=== PATIENT | male | born 1960 | race Caucasian/White ===

== ENCOUNTER 2017-05-11 09:22 | Inpatient (IN) | payer MEDICARE ==
--- NOTE | 2017-05-01 15:50 | HP ---
AMENDED REPORT NOW INCLUDES COSIGNER DESIGNATION - ESIGNED BEFORE ADJUSTMENT HISTORY AND PHYSICAL: DATE OF ADMISSION/SURGERY: 05/11/17 SURGEON: Isabelle Smith MD * (DICTATED BY KAVYA ACOSTA) PROCEDURE: Right total knee arthroplasty. CHIEF COMPLAINT: Right knee pain. HISTORY OF PRESENT ILLNESS: Mr. Simon is a 56-year-old gentleman with continued complaints of right knee pain. He has failed conservative management and has elected to proceed with a right total knee arthroplasty, which is scheduled for 05/11/17, with Dr. Smith. PAST MEDICAL HISTORY: 1. Diabetes. 2. COPD. 3. Hyperlipidemia. 4. Depression. 5. History of alcohol abuse. 6. Venous insufficiency. 7. GERD. 8. Hypogonadism. 9. Sleep apnea. 10. Hypothyroidism. PAST SURGICAL HISTORY: 1. Lumbar fusion. 2. Bilateral total hip replacements. 3. Bilateral total shoulder replacements. 4. Right knee arthroscopy x3. 5. Left knee arthroscopy x2. CURRENT MEDICATIONS: 1. Oxycodone 10 mg every 3 hours as needed. 2. Fentanyl patch. 3. Potassium chloride. 4. Lyrica. 5. Fish oil. 6. Cymbalta 60 mg daily. 7. Furosemide 40 mg daily. 8. Mirtazapine 45 mg daily. 9. Metformin 500 mg 2 tabs in the morning, 1 in the evening. 10. Levothyroxine 50 mcg daily. 11. Quetiapine fumarate. 12. Buspirone. 13. Alpha-lipoic acid. 14. Vitamin B12. 15. Celebrex. 16. Albuterol sulfate. 17. Melatonin. 18. Seroquel 50 mg twice daily. 19. Zolpidem tartrate. 20. Baclofen. 21. Levemir. ALLERGIES: To NICOTINE PATCH and TAPE. 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 He smokes half a pack a day. He denies use of drugs or alcohol. REVIEW OF SYSTEMS: A complete 14-point review of systems is reviewed with the patient, is positive for shortness of breath, COPD, diabetes, and thyroid disease. PHYSICAL EXAMINATION GENERAL: He is well developed, well nourished, in no acute distress. VITAL SIGNS: He stands 5 feet 11 inches tall, weighs 300 pounds. His blood pressure is 150/87, heart rate is 80. HEENT: Normocephalic, atraumatic. NECK: Supple. No palpable lymph nodes. PULMONARY: Lungs are clear to auscultation bilaterally. CARDIO: Regular rate and rhythm. Strong S1, S2. ABDOMEN: Soft, nontender, nondistended. NEUROLOGIC: He is alert and oriented x3. Pleasant mood and appropriate affect. MUSCULOSKELETAL: Right lower extremity, the skin is intact. There are no open wounds or abrasions. He has some tenderness over the medial and lateral joint line. He has 5 to 125 degrees of range of motion, 2+ dorsalis pedis pulses, intact sensation. All of his lower extremity muscle group strengths are intact at 5/5. ASSESSMENT AND PLAN: Mr. Simon is a 56-year-old gentleman with complaints of right knee pain secondary to advanced osteoarthritis. He has failed conservative management and elected to proceed with a right total knee arthroplasty, which is scheduled for 05/11/[address] Smith discussed the risks and benefits of the surgery and all of his questions were answered. Coumadin and Colace were sent to his pharmacy for postoperative DVT prophylaxis. He is currently a patient of Dr. Jay at the pain clinic and has a prescription for oxycodone and a fentanyl patch. Postoperative pain control will be determined at the time of discharge. KAVYA ACOSTA [id number]/[facility] #: [id number] MTDLeeanna
[~2017-05-11 09:22] MED LIST: Buffered Lidocaine 0.9% SYRIN* 5 ML/SYR SYRINGE INTRADERM ONE; Famotidine IV* 10 MG/ML 2 ML (20 mg) IV ONE
[2017-05-11] MEDS ORDERED: Gabapentin CAP(*) 300 MG PO ONE (09:45)
[2017-05-11] MEDS ORDERED: fentaNYL* 50 MCG/ML 2 ML VIAL (100 MCG VIAL) ONE ×3 (09:47→13:43)
[2017-05-11] MEDS ORDERED: Midazolam* 1 MG/ML 5 ML VIAL (5 MG) ONE (09:47)
[2017-05-11] MEDS ORDERED: Famotidine IV* 10 MG/ML 2 ML (20 mg) ONE (10:01)
[2017-05-11] MEDS ORDERED: Gabapentin CAP(*) 300 MG ONE (10:01)
[2017-05-11] MEDS ORDERED: ceFAZolin 2 GM PREMIX (*) 50 ML IVPB ONE (10:21)
[2017-05-11] MEDS ORDERED: ceFAZolin 1 GM in Dextrose (*) 1 GM/50 ML BAG IVPB ONE (10:29)
[2017-05-11] MEDS ORDERED: Lidocaine 2% PF * 5 ML VIAL ONE ×2 (11:35→13:56)
[2017-05-11] MEDS ORDERED: ROPIVACAINE 5 MG/ML 30 ML BTL (0.5%) ONE (11:35)
[2017-05-11] MEDS ORDERED: KETAMINE HCL* 50 MG/ML 10 ML VIAL ONE (12:38)
[2017-05-11] MEDS ORDERED: hydrALAZINE IV* 20 MG/ML VIAL ONE (13:56)
[2017-05-11] MEDS ORDERED: Dexamethasone IV* 4 MG/ML 1 ML (4 MG) ONE (13:56)
[2017-05-11] MEDS ORDERED: Ketorolac INJ* 30 MG/ML 1 ML VIAL ONE ×2 (13:56→16:29)
[2017-05-11] MEDS ORDERED: Succinylcholine* 20 MG/ML 10 ML VIAL ONE (13:56)
[2017-05-11] MEDS ORDERED: Propofol* 10 MG/ML 20 ML BTL IV PUSH ONE (13:56)
[2017-05-11] MEDS ORDERED: Ondansetron INJ* 2 MG/ML VIAL ONE (13:56)
[2017-05-11] MEDS ORDERED: HYDROmorphone INJ* 1 MG/ML CARPUJECT SYRINGE ONE ×2 (14:43→15:24)
[2017-05-11] MEDS ORDERED: oxyCODONE/Acetamin 5/325 MG* TAB PO PRN ×2 (14:51)
[2017-05-11] MEDS ORDERED: diPHENhydraMINE IV* 50 MG/ML 1 ml VIAL (BENADRYL) IV PRN (14:51)
[2017-05-11] MEDS ORDERED: Acetaminophen TAB* 325 MG PO PRN (14:51)
[2017-05-11] MEDS ORDERED: Polyethylene Glycol 3350* 17 GM PACKET PO PRN (14:51)
[2017-05-11] MEDS ORDERED: Ondansetron INJ* 2 MG/ML VIAL IV PRN (14:51)
[2017-05-11] MEDS ORDERED: traZODone TAB* 50 MG TAB PO PRN (14:51)
[2017-05-11] MEDS ORDERED: Albuterol HFA INHALER* 8 gm MDI INH PRN (14:59)
[2017-05-11] MEDS ORDERED: Zolpidem TAB* 10 MG PO PRN (14:59)
[2017-05-11] MEDS ORDERED: NON FORMULARY MED* (Melatonin [Melatonin] 5 MG) PO PRN (14:59)
[2017-05-11] MEDS ORDERED: DiMENhydriNATE IV* 50 MG/ML VIAL IV PUSH PRN (15:02)
[2017-05-11] MEDS ORDERED: oxyCODONE TAB* 5 MG TAB PO PRN (15:08)
[2017-05-11] MEDS ORDERED: oxyCODONE/Acetamin 5/325 MG* TAB ONE (15:23)
[2017-05-11] MEDS ORDERED: Gabapentin CAP(*) 100 MG ONE (15:30)
[2017-05-11] MEDS: oxyCODONE/Acetamin 5/325 MG* TAB PO PRN ×2 (15:33→15:34)
[2017-05-11] MEDS: HYDROmorphone INJ* 1 MG/ML CARPUJECT SYRINGE IV PRN ×2 (15:33→16:04)
[2017-05-11] MEDS ORDERED: Dextrose 50% Syringe 50 ML* 25 GM/50 ML SYRINGE IV PUSH PRN (15:47)
[2017-05-11] MEDS ORDERED: Albuterol 2.5 MG/3 ML NEB.SOL* (0.083%) INH PRN (15:52)
[2017-05-11] MEDS: Ketorolac INJ* 30 MG/ML 1 ML VIAL IV PUSH SCH ×2 (16:30→22:06)
--- NOTE | 2017-05-11 16:31 | RAD ---
INDICATION: Status post right knee total arthroplasty COMPARISON: Preoperative knee radiograph March 29, 2017 TECHNIQUE: 2 view radiograph of the right knee. FINDINGS: The patient is status post right knee prosthesis in anatomic alignment. Postsurgical changes include a drain. IMPRESSION: Anatomic alignment of right knee prosthesis.
[2017-05-11] MEDS ORDERED: Warfarin TAB(*) 6 MG PO ONE (18:00)
[2017-05-11] MEDS: fentaNYL PATCHs 100 MCG/HR TRANSDERM SCH (18:12)
[2017-05-11] MEDS: oxyCODONE TAB* 5 MG TAB PO SCH ×2 (18:16→22:05)
[2017-05-11] MEDS: HYDROmorphone INJ* 2 MG/ML CARPUJECT SYRINGE IV SLOW PU PRN (18:17)
[2017-05-11] MEDS: Insulin LISPRO* 1 UNITS UNIT SUBCUT SCH (18:17)
[2017-05-11] MEDS: Mirtazapine TAB* 15 MG PO SCH (18:27)
[2017-05-11] MEDS: fentaNYL Patch Check Q Shift 1 NOTE SCH (18:44)
[2017-05-11] MEDS ORDERED: OXYCODONE HCL 30 MG PO SCH (21:00)
[2017-05-11] MEDS ORDERED: metFORMIN* 500 MG TAB PO SCH (21:00)
[2017-05-11] MEDS ORDERED: celeCOXIB CAP* 200 MG PO SCH (21:00)
[2017-05-11] MEDS: ceFAZolin 1 GM VIAL(*) 1 GM in NS 0.9% 50 ML* 50 ML IVPB SCH (21:07)
[2017-05-11] MEDS: busPIRone TAB* 10 MG PO SCH (21:07)
[2017-05-11] MEDS: Baclofen TAB* 10 MG PO SCH (21:08)
[2017-05-11] MEDS: Docusate CAP* 100 MG PO SCH (21:08)
[2017-05-11] MEDS: Pregabalin CAP(*) 50 MG PO SCH (21:09)
[2017-05-11] MEDS: DULoxetine DR CAP* 60 MG CAP.DR PO SCH (21:10)
[2017-05-11] MEDS: QUEtiapine TAB* 25 MG PO SCH (21:10)
[2017-05-11] MEDS: OMEGA-3 FATTY ACIDS (NF) 1,000 MG CAP PO SCH (21:11)
[2017-05-11] MEDS: ALPHA LIPOIC ACID PO SCH (21:11)
--- NOTE | 2017-05-11 22:16 | CONS ---
CC: Dr. Brown; Dr. Smith * CONSULTATION REPORT: DATE OF CONSULT: 05/11/17 PRIMARY CARE PROVIDER: Dr. Brown. ATTENDING PHYSICIAN WHILE IN THE HOSPITAL: Sammy Layne MD (report dictated by Ton Gutierrez NP) REASON FOR MEDICAL CONSULTATION: Evaluation and medical management of comorbid medical conditions. HISTORY OF PRESENT ILLNESS: I refer you to Dr. Smith's H and P dictated prior to admission for further details. In short, Mr. Simon is a 56-year-old male patient with multiple medical problems. He is diabetic. He has history of COPD , hyperlipidemia, depression, remote history of EtOH use and abuse, history of GERD, TALON, and does not wear a CPAP, and a history of hypothyroidism. He has been having a significant amount of right knee pain for some time. He was failing conservative therapy of significant arthritis of his knees. He has previously had knee arthroscopies to his right knee. Because of the continued pain and failed conservative therapy, it was felt that he would benefit from a right total knee replacement, which he underwent today. He was evaluated in the PACU. He denies having any chest pain or any shortness of breath. He states his pain is about an 8/10, it is coming down, it is getting better with the pain medications. He denies having any nausea. Denies having any vomiting or any abdominal discomfort. He states he does not feel lightheaded or dizzy. He states that he has sensation to both legs and that he is feeling well besides the knee pain. Because of his medical complexity, we were asked to evaluate in consult. PAST MEDICAL HISTORY: Significant for: 1. Diabetes. 2. COPD. 3. Hyperlipidemia. 4. Depression. 5. EtOH abuse in the past. 6. GERD. 7. TALON. 8. Hypothyroidism. PAST SURGICAL HISTORY: 1. He has had a lumbar fusion. 2. He has had bilateral total hip arthroplasty. 3. He has had bilateral shoulder replacements. 4. He has had right knee arthroscopy x3. 5. He has had left knee arthroscopy x2. 6. He has had a right total knee replacement. HOME MEDICATIONS: 1. Fentanyl patch 100 mcg every 72 hours. 2. BuSpar 30 mg p.o. b.i.d. 3. Ambien 10 mg at bedtime as needed. 4. Seroquel 50 mg p.o. b.i.d. 5. Lyrica 150 mg p.o. t.i.d. 6. Potassium 10 mEq p.o. daily. 7. Oxycodone ER 30 mg p.o. take as directed. 8. Clermont-3 fatty acids 1000 mg p.o. b.i.d. 9. Remeron 45 mg p.o. daily. 10. Metformin 2 tablets p.o. b.i.d. 11. Melatonin 5 mg p.o. at bedtime as needed. 12. Synthroid 50 mcg daily. 13. Insulin detemir 60 units subcu q.a.m. 14. Lasix 40 mg daily. 15. Cymbalta 60 mg p.o. b.i.d. 16. B12 two tablets p.o. on Monday. 17. Celebrex 200 mg p.o. b.i.d. 18. Baclofen 10 mg p.o. b.i.d. 19. Alpha lipoic acid 200 mg p.o. b.i.d. 20. ProAir 2 puffs inhaled every 6 hours as needed. ALLERGIES TO MEDICATIONS: Include NICOTINE and ADHESIVE TAPE. FAMILY HISTORY: Mother had a history of diabetes. Father had a history of emphysema. SOCIAL HISTORY: He is a former alcoholic. He does have a history of tobacco abuse. He smokes about a half a pack a day. He has been smoking since the teens. His surrogate decision maker is his . REVIEW OF SYSTEMS: There is no documented fever. He denied having any significant weight change. There was no double vision. He denies having any ear discharge. He denies having any rhinorrhea. There is no sore throat, no thyroid enlargement. Denies having any chest pain. There is no orthopnea. No nocturnal dyspnea. Denies having any abdominal discomfort. Denies any nausea or vomiting. No dysuria. No frequency. No seizure. No loss of consciousness. No pruritus. No skin ulcerations. Review of 14 systems completed, all others negative. PHYSICAL EXAMINATION: Vital Signs: Blood pressure 153/81 with a pulse of 88, respirations are 16, O2 sat 93%, and temperature 97.9. General: At this time, Mr. Simon is a 56-year-old male patient. He is sitting in the PACU bed. He does not appear to be in any acute distress. HEENT: Head atraumatic. Eyes: EOMs are intact. Sclerae anicteric. Neck: Supple. Throat: Oral mucosa appears to be moist. No oropharyngeal erythema. Heart sounds S1, S2. Regular rate and rhythm. No murmurs, rubs, or gallops. Lungs: Clear to auscultation. No wheezes, rales, or rhonchi. Abdomen: Soft, flat, nontender. Bowel sounds are hypoactive. Extremities: Pulses are 2+ throughout. He is moving his upper extremity with 5/5 strength. Distal CSM checks were intact in the right lower extremity. Neurologic: He is drowsy, but he awakens. He is alert. He is oriented x3. His tongue is midline. His internal corrosion specialist are equal. He had no gross focal deficits. Skin: Intact with the exception he has an incision to the right knee, which is covered with a Wojciech dressing and his Hemovac intact. LABORATORY DATA: Preop revealed WBC of 8.0, RBC of 4.41, hemoglobin of 15.2, hematocrit of 43, platelet count of 142. INR 0.90. Sodium was 124, potassium 3.9, chloride 99, bicarb 28, BUN 17, creatinine 0.86, glucose of 312, AST 50, ALT 43, albumin 4.2. Urine preop negative. He did have a chest x-ray preop, which revealed no active cardiopulmonary disease. He had an EKG obtained preop , which showed a normal sinus rhythm rate of 65. He had an intraventricular conduction delay. No signs of ST elevation or T wave inversions. Old medical records reviewed. ASSESSMENT AND PLAN: Mr. Simon is a 56-year-old male patient coming into the orthopedic services today for an elective right total knee replacement. The hospitalist service was asked to evaluate in consult. Recommendations at this point are: 1. Status post right total knee. I will defer the management of this to Dr. Smith and her team. 2. Diabetes. We will continue with detemir and also put him on a sliding scale. 3. History of chronic obstructive pulmonary disease. I have ordered p.r.n. albuterol. We will continue with pulmonary toileting. I did order incentive spirometry. 4. Hyperlipidemia. Continue his meds as prescribed. 5. Depression. Continue meds as prescribed, it is stable. 6. History of EtOH abuse. Not an active issue. We will monitor. 7. Gastroesophageal reflux disease. Current his current medical management. 8. History of obstructive sleep apnea. Did order oximetry overnight. 9. Hypothyroidism. Continue with Synthroid. 10. Chronic pain. Orthopedics did continue his fentanyl. We will monitor him closely for any increased somnolence. We may need to cut back on his chronic pain meds in the setting of him having recent anesthesia, but we will follow. 11. Hypertension. Again, he takes only the Lasix and he states he takes this for his blood pressure, but in the setting of acute illness and postop like this , I am going to hold on the Lasix. We can restart this as needed. We will follow the blood pressure closely. 12. DVT prophylaxis. We will defer to the primary team. 13. Code status. He is a full code. 14. Fluid, electrolytes, and nutrition. I would recommend a heart healthy diet. TIME SPENT: Time spent on the consult was 60 minutes, greater than half that time was spent [id number] with the patient obtaining my history and physical, the other half time was spent going over the plan of care with the patient and implementing the plan of care. I discussed the plan of care with my attending, Dr. Layne, he is in agreement. TON GUTIERREZ NP [id number]/[facility] #: [id number] MTDLeeanna
[2017-05-12] MEDS: oxyCODONE TAB* 5 MG TAB PO SCH ×6 (02:29→22:00)
[2017-05-12] MEDS: ceFAZolin 1 GM VIAL(*) 1 GM in NS 0.9% 50 ML* 50 ML IVPB SCH ×2 (04:09→12:00)
[2017-05-12] MEDS: Ketorolac INJ* 30 MG/ML 1 ML VIAL IV PUSH SCH ×4 (04:09→22:01)
[2017-05-12] MEDS: Levothyroxine TAB* 50 MCG TAB PO SCH (06:33)
[2017-05-12] MEDS: fentaNYL Patch Check Q Shift 1 NOTE SCH ×2 (07:20→18:56)
[2017-05-12 07:55] LABS: Hematocrit 37 % (42-52); Hemoglobin 12.6 g/dl (14.0-18.0)
[2017-05-12 08:15] LABS: BUN/Creatinine Ratio 18.3 (8-20); Calcium 8.4 mg/dL (8.6-10.3); EGFR African American 125.9 (>60); EGFR Non-African American 97.9 (>60)
--- NOTE | 2017-05-12 08:27 | PN ---
Progress Note - Progress Note Date of Service: 05/12/17 SOAP: Subjective: 56 y/o male s/p R TKA 05/[address] Smith. Patient sitting up, no questions/ concerns about surgery. Pain well controlled. VSS, afebrile overnight. Objective: General- AO NAD sitting in chair MSK - R knee surgical dressing intact, drain removed by DR. Smith without difficulty, tip intact, neg homans b/l, PT 2+ b/l, sensation intact grossly to light touch b/l LEs, + DF/PF b/l. Vital Signs Temp 98.1 F 05/12/17 07:30 Pulse 69 05/12/17 07:30 Resp 16 05/12/17 07:30 BP 102/67 05/12/17 07:30 Pulse Ox 95 05/12/17 07:30 Intake & Output 05/11/17 05/12/17 05/12/17 18:59 06:59 18:59 Intake Total 3800 1119 Output Total 400 3100 Balance 3400 -1981 Weight 300 lb Intake: IV Fluids 3300 880 LR 880 lr 3300 IVPB 119 ABX - CEFAZOLIN 119 Oral 500 120 Output: ZANE #1 0 Cifuentes 200 3100 Estimated Blood Loss 200 Assessment: Stable 56 y/o male s/p R TKA 05/[address] Smith Plan: - DVT prophylaxis- coumadin, lovenox. Coumadin dosing- 8mg tonight - COntinue PT/ OT - Possible D/C home tomorrow - Continue pain regimen Active Medications Generic Name Dose Route Start Last Admin Trade Name Freq PRN Reason Stop Dose Admin Acetaminophen 650 mg 05/11/17 14:51 Tylenol Tab* PO Q4H PRN PAIN OR TEMPERATURE Albuterol 2 puff 05/11/17 14:59 Ventolin Hfa Inhaler* INH Q6H PRN SOB/WHEEZING Albuterol 2.5 mg 05/11/17 15:52 Ventolin 2.5 Mg/3 Ml Neb.Darlene* INH Q2H PRN SOB/WHEEZING Baclofen 10 mg 05/11/17 21:00 05/11/17 21:08 Lioresal Tab* PO 10 mg BID NATAN Administration Buspirone HCl 30 mg 05/11/17 21:00 05/11/17 21:07 Buspar Tab* PO 30 mg BID NATAN Administration Cyanocobalamin 1,000 mcg 05/17/17 09:00 Vitamin B12 Tab* PO WE NATAN Dextrose 12.5 gm 05/11/17 15:47 D50w Syringe 50 Ml* IV PUSH .FOR FS < 60 - SS PRN FS < 60 Diphenhydramine HCl 25 mg 05/11/17 14:51 Benadryl Iv* IV Q6H PRN itching Docusate Sodium 100 mg 05/11/17 21:00 05/11/17 21:08 Colace Cap* PO 100 mg BID NATAN Administration Duloxetine HCl 60 mg 05/11/17 21:00 05/11/17 21:10 Cymbalta Cap* PO 60 mg BID NATAN Administration Enoxaparin Sodium 40 mg 05/12/17 09:00 Lovenox(*) SUBCUT Q24H NATAN Fentanyl 100 mcg 05/11/17 18:00 05/11/17 18:12 Duragesic Patch 100 Mcg/Hr * TRANSDERM 100 mcg Q72H NATAN Administration Fish Oil 1,000 mg 05/11/17 21:00 05/11/17 21:11 Fish Oil (Nf) PO Not Given BID [facility] Protocol Hydromorphone HCl 2 mg 05/11/17 15:08 05/11/17 18:17 Dilaudid Inj* IV SLOW PU 2 mg Q4H PRN Administration PAIN Cefazolin Sodium 1 gm/ Sodium 50 mls @ 200 mls/hr 05/11/17 20:00 05/12/17 04: 09 Chloride IVPB 05/12/17 12:14 200 mls/hr Q8H NATAN Administration Lactated Ringer's 1,000 mls @ 100 mls/hr 05/11/17 15:00 Lactated Ringers 1000 Ml Bag* IV PER RATE [facility] Insulin Glargine 60 units 05/12/17 09:00 Lantus(*) SUBCUT QAM NATAN Insulin Human Lispro 0 units 05/11/17 16:30 05/11/17 18:17 Humalog* SUBCUT 6 units AC [facility] Administration Protocol Ketorolac Tromethamine 30 mg 05/11/17 16:00 05/12/17 04:09 Toradol Inj* IV PUSH 30 mg Q6H NATAN Administration Lactulose 30 ml 05/11/17 14:51 Lactulose* PO Q6H PRN constipation Levothyroxine Sodium 50 mcg 05/12/17 06:00 05/12/17 06:33 Synthroid Tab* PO 50 mcg 0600 NATAN Administration Magnesium Hydroxide 30 ml 05/11/17 14:51 Milk Of Magnesia Liq* PO Q6H PRN constipation Mirtazapine 45 mg 05/11/17 18:00 05/11/17 18:27 Remeron Tab* PO 45 mg QPM NATAN Administration Non-Formulary Medication 200 mg 05/11/17 21:00 05/11/17 21:11 Alpha-Lipoic Acid (Thioctic Ac [Alpha Lipoic Acid] PO Not Given BID NATAN Non-Formulary Medication 5 mg 05/11/17 14:59 Melatonin [Melatonin] PO BEDTIME PRN INSOMNIA Ondansetron HCl 4 mg 05/11/17 14:51 Zofran Inj* IV Q6H PRN nausea Oxycodone HCl 30 mg 05/11/17 18:00 05/12/17 06:57 Roxycodone Tab* PO 30 mg Q4HR NATAN Administration Pharmacy Profile Note 1 note 05/11/17 19:00 05/12/17 07:20 Fentanyl Patch Check Q Shift N/A 1 note 0700,1900 NATAN Administration Polyethylene Glycol/Electrolytes 17 gm 05/11/17 14:51 Miralax* PO DAILY PRN Constipation Potassium Chloride 10 meq 05/12/17 09:00 Klor Con Er Tab* PO QAM NATAN Pregabalin 150 mg 05/11/17 21:00 05/11/17 21:09 Lyrica Cap(*) PO 150 mg TID NATAN Administration Quetiapine Fumarate 50 mg 05/11/17 21:00 05/11/17 21:10 Seroquel Tab* PO 50 mg BID NATAN Administration Trazodone HCl 25 mg 05/11/17 14:51 Desyrel Tab* PO BEDTIME PRN insomnia Zolpidem Tartrate 10 mg 05/11/17 14:59 Ambien Tab* PO BEDTIME PRN SLEEP Laboratory Results - last 24 hr 05/11/17 05/11/17 05/11/17 09:33 15:06 17:45 Hgb Hct Sodium Potassium Chloride Carbon Dioxide Anion Gap BUN Creatinine Est GFR ( Amer) Est GFR (Non-Af Amer) BUN/Creatinine Ratio Glucose POC Glucose (mg/dL) 162 H 205 H 234 H Calcium 05/12/17 05/12/17 05/12/17 06:46 06:46 07:26 Hgb 12.6 L Hct 37 L Sodium 137 Potassium 4.0 Chloride 104 Carbon Dioxide 29 Anion Gap 4 BUN 15 Creatinine 0.82 Est GFR ( Amer) 125.9 Est GFR (Non-Af Amer) 97.9 BUN/Creatinine Ratio 18.3 Glucose 218 H POC Glucose (mg/dL) 228 H Calcium 8.4 L
[2017-05-12] MEDS ORDERED: Furosemide TAB* 40 MG PO SCH (09:00)
[2017-05-12] MEDS: busPIRone TAB* 10 MG PO SCH ×2 (09:55→21:58)
[2017-05-12] MEDS: Baclofen TAB* 10 MG PO SCH ×2 (09:55→21:57)
[2017-05-12] MEDS: QUEtiapine TAB* 25 MG PO SCH ×2 (09:55→22:00)
[2017-05-12] MEDS: DULoxetine DR CAP* 60 MG CAP.DR PO SCH ×2 (09:56→21:58)
[2017-05-12] MEDS: Pregabalin CAP(*) 50 MG PO SCH ×3 (09:56→21:59)
[2017-05-12] MEDS: Docusate CAP* 100 MG PO SCH ×2 (09:56→21:58)
[2017-05-12] MEDS: Potassium Chlor TAB* 10 MEQ TAB.ER PO SCH (09:56)
[2017-05-12] MEDS: OMEGA-3 FATTY ACIDS (NF) 1,000 MG CAP PO SCH ×2 (09:57→21:50)
[2017-05-12] MEDS: Insulin GLARGINE(*) 1 UNITS UNIT SUBCUT SCH (09:59)
[2017-05-12] MEDS: ALPHA LIPOIC ACID PO SCH ×2 (09:59→21:50)
[2017-05-12] MEDS: Insulin LISPRO* 1 UNITS UNIT SUBCUT SCH ×3 (10:00→17:25)
[2017-05-12] MEDS: Enoxaparin(*) 40 MG/0.4 ML SYR SUBCUT SCH (10:02)
[2017-05-12] MEDS: HYDROmorphone INJ* 2 MG/ML CARPUJECT SYRINGE IV SLOW PU PRN ×2 (12:42→20:07)
--- NOTE | 2017-05-12 14:40 | OP ---
OPERATIVE REPORT: DATE OF OPERATION: 05/11/17 DATE OF : 64 ATTENDING SURGEON: Isabelle Smith MD [employer]: KAVYA Manuel Ms. Jose Antonio did help throughout the procedure with preparation of the leg, wound retraction, manipulation of the knee, and wound closure. ANESTHESIOLOGIST: Dr. Washburn. ANESTHESIA: Spinal. PRE-OP DIAGNOSIS: Severe end-stage degenerative osteoarthritis of the right knee joint. POST-OP DIAGNOSIS: Severe end-stage degenerative osteoarthritis of the right knee joint. OPERATIVE PROCEDURE: Right total knee arthroplasty. TOURNIQUET TIME: 48 minutes. COMPLICATIONS: None. ESTIMATED BLOOD LOSS: 300 mL. SPECIMENS: Bone and cartilage from the right knee joint, sent to Pathology. HARDWARE USED: Cemented Vel[employer]hew total knee hardware. 2 packages of Simplex bone cement. For the femur, size 7 right Oxinium femoral component. For the tibia, size 6 right tibial baseplate. For the insert, an 11-mm posterior stabilized articular insert, size 5/6. For the patella, a 38, 3-peg all poly patella. BRIEF HISTORY/INDICATION: Mr. Simon is a 56-year-old gentleman with years of right knee pain. He started to develop valgus deformity as well. Radiographs and prior MRI indicated severe arthritis in the tricompartmental fashion. The patient failed conservative treatment with antiinflammatory pain medication, intraarticular injections, and physical therapy. Due to decreased quality of life and constant pain, he elected to undergo right total knee arthroplasty. Informed consent was obtained from the patient. He understood the risks of surgery included but were not limited to bleeding, infection, damage to nearby structures, continued pain, need for further surgery, intraoperative fracture, nerve palsy, hardware failure or loosening, knee stiffness, loss of motion, stroke, heart attack, blood clot, and . He wished to proceed. INTRAOPERATIVE FINDINGS: Intraoperatively, the patient was noted to have severe full thickness loss of cartilage in tricompartmental fashion. 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 DESCRIPTION OF PROCEDURE: Mr. Simon was identified in the preanesthesia unit. His right lower extremity was marked as the correct operative side. Informed consent was signed and placed in the chart. Right lower extremity was marked as the correct operative site. The patient was taken to the operating room. Anesthesia was administered without difficulty. Cifuentes catheter was placed. Tourniquet was placed on the right thigh. The right lower extremity was prepped and draped in the usual sterile fashion. Preop time-out was made to correctly identify the patient side and site. Appropriate preoperative antibiotics were given within 1 hour of incision. Tourniquet was inflated and total tourniquet time for this procedure was 48 minutes. A 14-cm midline incision was made with a #10 blade. This was carried down to the extensor mechanism. A new #10 blade used to make a standard medial parapatellar arthrotomy. Patella was subluxed laterally. Electrocautery was used to subperiosteally elevate soft tissue off the superomedial tibia to the mid sagittal plane. The knee was flexed up. The ACL, horn of the lateral meniscus was sharply released. A drill was used to enter the distal femur. Intramedullary distal femoral cutting guide was pinned on the distal femur. Oscillating saw was used to make the distal femoral cut. The lateral femoral condylar hypoplasia was noted and accounted for. Next, the external rotational guide was pinned on the distal femur. Distal femur was sized to a size 7. Size 7 multi-cutting jig was pinned on the distal femur. The oscillating saw was used to make the appropriate 4 chamfer cuts. Any bony fragments were carefully removed. The PCL was completely released. The tibia was subluxed anteriorly. Extramedullary tibial cutting guide was pinned on the proximal tibia. The oscillating saw was used to make the proximal tibial cut perpendicular to the mechanical axis of the tibia. The bone was carefully removed. The knee was brought out into full extension. The spacer block had good fit and extension. Medial and lateral ligaments were well balanced. Flexion and extension gaps were well balanced. The knee was flexed up. Lamina product manager was placed both medially and laterally. Any remaining meniscus was carefully removed with electrocautery. Any posterior osteophytes were removed with a curved osteotome. Tibial tray and drop candido was placed on the tibia. This was used to once again confirm a satisfactory tibial cut. This was confirmed. A size 7 right femoral component trial was impacted on to the distal femur. This had excellent fit. The box for the posterior stabilized implant was prepared using a reamer and box cut osteotome. Size 6 tibial tray trial with an 11 mm insert trial was placed and the knee was taken through range of motion. There was full extension and 130 degrees flexion with satisfactory patellofemoral tracking. The patella was everted. 9 mm of patellar bone and cartilage were carefully removed with an oscillating saw. The patella was sized to size 38. Three peg holes were drilled for the size 38 guide. Trial 38 patella was placed and the knee was taken through range of motion. There is good patellofemoral tracking. All trials were carefully removed. The tibia was subluxed anteriorly and sized to a size 6. The proximal tibia was prepared using a size 6 keel punch. All bony cut surfaces were copiously irrigated with sterile saline and dried. Final implants were cemented into place and starting with the tibia followed by the femur, and lastly the patella. An 11-mm insert trial was placed while the knee was brought out into extension while the cement was fully cured. The tourniquet was turned down at 48 minutes. The knee was copiously irrigated with sterile saline. Once the cement had fully cured, the insert trial was removed. Any excess cement was carefully removed from around the implant. Electrocautery was used to obtain meticulous hemostasis. Final insert chosen was an 11 mm posterior stabilized articular insert size 5/6. This was locked into position on the tibial tray. Stability of the insert was checked and rechecked and noted to be stable. The knee was copiously irrigated with sterile saline. Extensor mechanism was closed using a interrupted #1 Vicryl over a medium Hemovac drain. The rest of the incision was closed in a layered fashion using 0 and 2-0 Vicryls. The skin was closed using running 3-0 nylon suture. Xeroform, 4x4s, and Webril were used to cover the incision. Wojciech wrap and cold pack were placed over this. The patient's anesthesia was reversed without difficulty. He was taken to the PACU in stable condition. Intended weightbearing will be weightbearing as tolerated. Intended DVT prophylaxis will be Coumadin with a Lovenox bridge. [id number]/[facility] #: [id number] AMELIA
[2017-05-12] MEDS ORDERED: Warfarin TAB(*) 4 MG PO ONE (17:00)
[2017-05-12] MEDS: Mirtazapine TAB* 15 MG PO SCH (17:23)
--- NOTE | 2017-05-12 17:50 | PN ---
Subjective Date of Service: 05/12/17 Interval History: . Patient sitting up in a chair visiting with friend [place]+O x3 in NAD. Appears comfortable. Reports his pain 03/30, states he just finished therapy though and his pain has been a little lower today. He has done well with ambulation and therapy. No fevers or chills. Denies SOb/CP. Reports good appetite. No N/V/D or constipation. Overall doing well. Objective Active Medications: Acetaminophen (Tylenol Tab*) 650 mg PO Q4H PRN PRN Reason: PAIN OR TEMPERATURE Albuterol (Ventolin Hfa Inhaler*) 2 puff INH Q6H PRN PRN Reason: SOB/WHEEZING Albuterol (Ventolin 2.5 Mg/3 Ml Neb.Darlene*) 2.5 mg INH Q2H PRN PRN Reason: SOB/WHEEZING Baclofen (Lioresal Tab*) 10 mg PO BID [facility] Last Admin: 05/12/17 09:55 Dose: 10 mg Buspirone HCl (Buspar Tab*) 30 mg PO BID [facility] Last Admin: 05/12/17 09:55 Dose: 30 mg Cyanocobalamin (Vitamin B12 Tab*) 1,000 mcg PO [facility] Dextrose (D50w Syringe 50 Ml*) 12.5 gm IV PUSH .FOR FS < 60 - SS PRN PRN Reason: FS < 60 Diphenhydramine HCl (Benadryl Iv*) 25 mg IV Q6H PRN PRN Reason: itching Docusate Sodium (Colace Cap*) 100 mg PO BID [facility] Last Admin: 05/12/17 09:56 Dose: 100 mg Duloxetine HCl (Cymbalta Cap*) 60 mg PO BID [facility] Last Admin: 05/12/17 09:56 Dose: 60 mg Enoxaparin Sodium (Lovenox(*)) 40 mg SUBCUT Q24H [facility] Last Admin: 05/12/17 10:02 Dose: 40 mg Fentanyl (Duragesic Patch 100 Mcg/Hr *) 100 mcg TRANSDERM Q72H [facility] Last Admin: 05/11/17 18:12 Dose: 100 mcg Fish Oil (Fish Oil (Nf)) 1,000 mg PO BID [facility] PRN Reason: Protocol Last Admin: 05/12/17 09:57 Dose: Not Given Hydromorphone HCl (Dilaudid Inj*) 2 mg IV SLOW PU Q4H PRN PRN Reason: PAIN Last Admin: 05/12/17 12:42 Dose: 2 mg Lactated Ringer's (Lactated Ringers 1000 Ml Bag*) 1,000 mls @ 100 mls/hr IV PER RATE [facility] Insulin Glargine (Lantus(*)) 60 units SUBCUT QAM [facility] Last Admin: 05/12/17 09:59 Dose: 60 unit Insulin Human Lispro (Humalog*) 0 units SUBCUT AC [facility] PRN Reason: Protocol Last Admin: 05/12/17 17:25 Dose: 3 units Ketorolac Tromethamine (Toradol Inj*) 30 mg IV PUSH Q6H [facility] Last Admin: 05/12/17 16:09 Dose: 30 mg Lactulose (Lactulose*) 30 ml PO Q6H PRN PRN Reason: constipation Levothyroxine Sodium (Synthroid Tab*) 50 mcg PO 0600 [facility] Last Admin: 05/12/17 06:33 Dose: 50 mcg Magnesium Hydroxide (Milk Of Magnesia Liq*) 30 ml PO Q6H PRN PRN Reason: constipation Mirtazapine (Remeron Tab*) 45 mg PO QPM [facility] Last Admin: 05/12/17 17:23 Dose: 45 mg Non-Formulary Medication (Alpha-Lipoic Acid (Thioctic Ac [Alpha Lipoic Acid]) 200 mg PO BID [facility] Last Admin: 05/12/17 09:59 Dose: Not Given Non-Formulary Medication (Melatonin [Melatonin]) 5 mg PO BEDTIME PRN PRN Reason: INSOMNIA Ondansetron HCl (Zofran Inj*) 4 mg IV Q6H PRN PRN Reason: nausea Oxycodone HCl (Roxycodone Tab*) 30 mg PO Q4HR [facility] Last Admin: 05/12/17 17:24 Dose: 30 mg Pharmacy Profile Note (Fentanyl Patch Check Q Shift) 1 note N/A 0700,1900 [facility] Last Admin: 05/12/17 07:20 Dose: 1 note Pharmacy Profile Note (Coumadin Daily Reminder*) 1 note FOLLOW UP 1700 [facility] Last Admin: 05/12/17 17:27 Dose: 1 note Polyethylene Glycol/Electrolytes (Miralax*) 17 gm PO DAILY PRN PRN Reason: Constipation Potassium Chloride (Klor Con Er Tab*) 10 meq PO QAM [facility] Last Admin: 05/12/17 09:56 Dose: 10 meq Pregabalin (Lyrica Cap(*)) 150 mg PO TID [facility] Last Admin: 05/12/17 14:09 Dose: 150 mg Quetiapine Fumarate (Seroquel Tab*) 50 mg PO BID [facility] Last Admin: 05/12/17 09:55 Dose: 50 mg Trazodone HCl (Desyrel Tab*) 25 mg PO BEDTIME PRN PRN Reason: insomnia Zolpidem Tartrate (Ambien Tab*) 10 mg PO BEDTIME PRN PRN Reason: SLEEP Vital Signs 05/12/17 05/12/17 05/12/17 11:39 12:08 12:42 Temperature 97.5 F Pulse Rate 68 Respiratory 16 18 18 Rate Blood Pressure 115/69 (mmHg) O2 Sat by Pulse 96 Oximetry 05/12/17 05/12/17 05/12/17 13:42 14:09 15:42 Temperature 98.6 F Pulse Rate 87 Respiratory 18 18 14 Rate Blood Pressure 138/82 (mmHg) O2 Sat by Pulse 96 Oximetry 05/12/17 05/12/17 05/12/17 16:09 17:14 17:24 Temperature Pulse Rate 90 Respiratory 18 16 18 Rate Blood Pressure (mmHg) O2 Sat by Pulse 95 Oximetry Oxygen Devices in Use Now: None Appearance: obese 56 yo male appearing older than his stated age sitting up A+O x3 in NAD> Eyes: No Scleral Icterus, PERRLA Ears/Nose/Mouth/Throat: NL Teeth, Lips, Gums, Mucous Membranes Moist Neck: NL Appearance and Movements; NL JVP Respiratory: Symmetrical Chest Expansion and Respiratory Effort, Clear to Auscultation Cardiovascular: NL Sounds; No Murmurs; No JVD, RRR, No Edema Abdominal: NL Sounds; No Tenderness; No Distention, - - obese Extremities: No Edema, No Clubbing, Cyanosis, - - right knee with cydney bandage - + DP pulses bilaterally Skin: No Rash or Ulcers, No Nodules or Sclerosis Neurological: Alert and Oriented x 3, NL Sensation, NL Muscle Strength and Tone Lines/Tubes/Other Access: Clean, Dry and Intact Peripheral IV Nutrition: Taking PO's Result Diagrams: 05/12/17 06:46 05/12/17 06:46 Assess/Plan/Problems-Billing Assessment: 56 yo male with PMH of DM2, COPD, HLD, Depression, ETOH abuse (in the past), TALON who underwent an elective right total knee yesterday. - Patient Problems (1) Status post total right knee replacement Comment: - POD #1 - Dispo per Ortho - PT/OT - Pain management, bowel regimen. - lovenox to coumadin bridge (2) Depression Comment: Continue all home meds. (3) Hypothyroidism Comment: Continue levothryoxine. (4) Type 2 diabetes mellitus Comment: Hold home oral meds. FSBG ACHS with Lispro SSI and home lantus 60 units Qam. FSBG running on the high side but Lantus was just restarted this am. Continue to monitor closely and adjust as needed (last sugar 170) - no new changes at this time HgbA1c 7.9 on most recent check. (5) DVT prophylaxis Comment: Continue lovenox coumadin bridge per ortho.
[2017-05-13] MEDS: oxyCODONE TAB* 5 MG TAB PO SCH ×6 (02:25→22:15)
[2017-05-13] MEDS: HYDROmorphone INJ* 2 MG/ML CARPUJECT SYRINGE IV SLOW PU PRN ×2 (02:32→07:33)
[2017-05-13] MEDS: Ketorolac INJ* 30 MG/ML 1 ML VIAL IV PUSH SCH ×4 (04:18→22:15)
[2017-05-13] MEDS: Levothyroxine TAB* 50 MCG TAB PO SCH (06:58)
[2017-05-13] MEDS: fentaNYL Patch Check Q Shift 1 NOTE SCH ×2 (07:24→19:13)
[2017-05-13] MEDS: Pregabalin CAP(*) 50 MG PO SCH ×3 (09:00→21:38)
[2017-05-13] MEDS: Docusate CAP* 100 MG PO SCH ×2 (09:01→21:38)
[2017-05-13] MEDS: QUEtiapine TAB* 25 MG PO SCH ×2 (09:01→21:37)
[2017-05-13] MEDS: Potassium Chlor TAB* 10 MEQ TAB.ER PO SCH (09:01)
[2017-05-13] MEDS: Baclofen TAB* 10 MG PO SCH ×2 (09:01→21:37)
[2017-05-13] MEDS: busPIRone TAB* 10 MG PO SCH ×2 (09:02→21:37)
[2017-05-13] MEDS: DULoxetine DR CAP* 60 MG CAP.DR PO SCH ×2 (09:02→21:37)
[2017-05-13] MEDS: ALPHA LIPOIC ACID PO SCH ×2 (09:02→21:36)
[2017-05-13] MEDS: OMEGA-3 FATTY ACIDS (NF) 1,000 MG CAP PO SCH ×2 (09:03→21:36)
[2017-05-13] MEDS: Magnesium Hydroxide LIQ* 30 ML UDC PO PRN ×2 (09:03→19:36)
[2017-05-13] MEDS: Insulin GLARGINE(*) 1 UNITS UNIT SUBCUT SCH (09:03)
[2017-05-13] MEDS: Insulin LISPRO* 1 UNITS UNIT SUBCUT SCH ×3 (09:04→18:31)
[2017-05-13] MEDS: Enoxaparin(*) 40 MG/0.4 ML SYR SUBCUT SCH (09:05)
[2017-05-13 09:09] LABS: Hematocrit 34 % (42-52); Hemoglobin 11.7 g/dl (14.0-18.0)
--- NOTE | 2017-05-13 10:07 | PN ---
Progress Note - Progress Note Date of Service: 05/13/17 SOAP: Subjective: Pt. is alert, c/o pain and weakness. Objective: RLE - dressing changed, inc c/d/i. distally min edema, nvi. superficial healing abrasion, no cellulitis. Vital Signs: Temp Pulse Resp BP Pulse Ox 98.7 F 82 18 150/95 92 05/13/17 07:46 05/13/17 07:46 05/13/17 09:00 05/13/17 07:46 05/13/17 07:46 Laboratory Results - last 24 hr 05/12/17 05/12/17 05/13/17 12:00 16:18 08:50 Hgb 11.7 L Hct 34 L INR (Anticoag Therapy) POC Glucose (mg/dL) 212 H 170 H 05/13/17 08:50 Hgb Hct INR (Anticoag Therapy) 1.17 H POC Glucose (mg/dL) Assessment: 56 yo M pod 2 s/p RTKA Plan: wbat rle pt/ot keflex 500 qid x 5 days, superficial abrasion coumadin 8 mg po tonight plan d/c to home tomorrow
[2017-05-13] MEDS: Cephalexin CAP* 500 MG PO SCH ×3 (13:56→21:38)
[2017-05-13] MEDS ORDERED: Warfarin TAB(*) 4 MG PO ONE (17:00)
[2017-05-13] MEDS ORDERED: Insulin GLARGINE(*) 1 UNITS UNIT SUBCUT SCH (18:03)
--- NOTE | 2017-05-13 18:07 | PN ---
Subjective Date of Service: 05/13/17 Interval History: Patient doing well post RT TKR. Eating normally. At home takes Levemir 64 units/day plus metformin. No chest pain, SOB. Family History: Unchanged from Admission Social History: Unchanged from Admission Past Medical History: Unchanged from Admission Objective Active Medications: Acetaminophen (Tylenol Tab*) 650 mg PO Q4H PRN PRN Reason: PAIN OR TEMPERATURE Albuterol (Ventolin Hfa Inhaler*) 2 puff INH Q6H PRN PRN Reason: SOB/WHEEZING Albuterol (Ventolin 2.5 Mg/3 Ml Neb.Darlene*) 2.5 mg INH Q2H PRN PRN Reason: SOB/WHEEZING Baclofen (Lioresal Tab*) 10 mg PO BID [facility] Last Admin: 05/13/17 09:01 Dose: 10 mg Buspirone HCl (Buspar Tab*) 30 mg PO BID [facility] Last Admin: 05/13/17 09:02 Dose: 30 mg Cephalexin HCl (Keflex Cap*) 500 mg PO QID [facility] Last Admin: 05/13/17 16:40 Dose: 500 mg Cyanocobalamin (Vitamin B12 Tab*) 1,000 mcg PO WE [facility] Dextrose (D50w Syringe 50 Ml*) 12.5 gm IV PUSH .FOR FS < 60 - SS PRN PRN Reason: FS < 60 Diphenhydramine HCl (Benadryl Iv*) 25 mg IV Q6H PRN PRN Reason: itching Docusate Sodium (Colace Cap*) 100 mg PO BID [facility] Last Admin: 05/13/17 09:01 Dose: 100 mg Duloxetine HCl (Cymbalta Cap*) 60 mg PO BID [facility] Last Admin: 05/13/17 09:02 Dose: 60 mg Enoxaparin Sodium (Lovenox(*)) 40 mg SUBCUT Q24H [facility] Last Admin: 05/13/17 09:05 Dose: 40 mg Fentanyl (Duragesic Patch 100 Mcg/Hr *) 100 mcg TRANSDERM Q72H [facility] Last Admin: 05/11/17 18:12 Dose: 100 mcg Fish Oil (Fish Oil (Nf)) 1,000 mg PO BID [facility] PRN Reason: Protocol Last Admin: 05/13/17 09:03 Dose: Not Given Hydromorphone HCl (Dilaudid Inj*) 2 mg IV SLOW PU Q4H PRN PRN Reason: PAIN Last Admin: 05/13/17 07:33 Dose: 2 mg Insulin Glargine (Lantus(*)) 60 units SUBCUT QAM [facility] Last Admin: 05/13/17 09:03 Dose: 60 unit Insulin Human Lispro (Humalog*) 0 units SUBCUT AC [facility] PRN Reason: Protocol Last Admin: 05/13/17 13:57 Dose: 6 units Ketorolac Tromethamine (Toradol Inj*) 30 mg IV PUSH Q6H [facility] Last Admin: 05/13/17 16:41 Dose: 30 mg Lactulose (Lactulose*) 30 ml PO Q6H PRN PRN Reason: constipation Levothyroxine Sodium (Synthroid Tab*) 50 mcg PO 0600 [facility] Last Admin: 05/13/17 06:58 Dose: 50 mcg Magnesium Hydroxide (Milk Of Magnesia Liq*) 30 ml PO Q6H PRN PRN Reason: constipation Last Admin: 05/13/17 09:03 Dose: 30 ml Mirtazapine (Remeron Tab*) 45 mg PO QPM [facility] Last Admin: 05/12/17 17:23 Dose: 45 mg Non-Formulary Medication (Alpha-Lipoic Acid (Thioctic Ac [Alpha Lipoic Acid]) 200 mg PO BID [facility] Last Admin: 05/13/17 09:02 Dose: Not Given Non-Formulary Medication (Melatonin [Melatonin]) 5 mg PO BEDTIME PRN PRN Reason: INSOMNIA Ondansetron HCl (Zofran Inj*) 4 mg IV Q6H PRN PRN Reason: nausea Oxycodone HCl (Roxycodone Tab*) 30 mg PO Q4HR [facility] Last Admin: 05/13/17 13:56 Dose: 30 mg Pharmacy Profile Note (Fentanyl Patch Check Q Shift) 1 note N/A 0700,1900 [facility] Last Admin: 05/13/17 07:24 Dose: 1 note Pharmacy Profile Note (Coumadin Daily Reminder*) 1 note FOLLOW UP 1700 [facility] Last Admin: 05/13/17 16:43 Dose: 1 note Polyethylene Glycol/Electrolytes (Miralax*) 17 gm PO DAILY PRN PRN Reason: Constipation Potassium Chloride (Klor Con Er Tab*) 10 meq PO QAM [facility] Last Admin: 05/13/17 09:01 Dose: 10 meq Pregabalin (Lyrica Cap(*)) 150 mg PO TID [facility] Last Admin: 05/13/17 13:56 Dose: 150 mg Quetiapine Fumarate (Seroquel Tab*) 50 mg PO BID [facility] Last Admin: 05/13/17 09:01 Dose: 50 mg Trazodone HCl (Desyrel Tab*) 25 mg PO BEDTIME PRN PRN Reason: insomnia Zolpidem Tartrate (Ambien Tab*) 10 mg PO BEDTIME PRN PRN Reason: SLEEP Vital Signs 05/12/17 05/12/17 05/12/17 19:37 19:45 20:07 Temperature 36.8 C Pulse Rate 81 Respiratory 15 18 18 Rate Blood Pressure 116/66 (mmHg) O2 Sat by Pulse 93 Oximetry 05/12/17 05/12/17 05/12/17 20:15 21:07 21:59 Temperature Pulse Rate Respiratory 18 16 14 Rate Blood Pressure (mmHg) O2 Sat by Pulse Oximetry 05/12/17 05/12/17 05/12/17 22:00 23:03 23:59 Temperature Pulse Rate 86 Respiratory 14 18 16 Rate Blood Pressure (mmHg) O2 Sat by Pulse 95 Oximetry 05/13/17 05/13/17 05/13/17 00:00 00:05 02:25 Temperature 36.8 C Pulse Rate 81 Respiratory 16 16 16 Rate Blood Pressure 129/62 (mmHg) O2 Sat by Pulse 93 Oximetry 05/13/17 05/13/17 05/13/17 02:32 03:18 03:32 Temperature 36.8 C Pulse Rate 76 Respiratory 16 14 14 Rate Blood Pressure 127/60 (mmHg) O2 Sat by Pulse 91 Oximetry 05/13/17 05/13/17 05/13/17 04:25 06:57 07:33 Temperature Pulse Rate Respiratory 14 16 18 Rate Blood Pressure (mmHg) O2 Sat by Pulse Oximetry 05/13/17 05/13/17 05/13/17 07:42 07:46 08:33 Temperature 37.1 C Pulse Rate 82 Respiratory 18 14 18 Rate Blood Pressure 150/95 (mmHg) O2 Sat by Pulse 92 92 Oximetry 05/13/17 05/13/17 05/13/17 08:57 09:00 10:12 Temperature Pulse Rate Respiratory 18 18 18 Rate Blood Pressure (mmHg) O2 Sat by Pulse Oximetry 0905/13/17 05/13/17 11:00 11:29 12:12 Temperature 36.8 C Pulse Rate 86 Respiratory 18 14 18 Rate Blood Pressure 141/73 (mmHg) O2 Sat by Pulse 94 Oximetry 05/13/17 05/13/17 05/13/17 13:56 15:56 16:00 Temperature Pulse Rate Respiratory 18 18 Rate Blood Pressure (mmHg) O2 Sat by Pulse 94 Oximetry 05/13/17 05/13/17 16:15 17:53 Temperature 36.8 C Pulse Rate 75 78 Respiratory 18 19 Rate Blood Pressure 120/81 (mmHg) O2 Sat by Pulse 94 94 Oximetry Oxygen Devices in Use Now: None Eyes: No Scleral Icterus Neck: NL Appearance and Movements; NL JVP Respiratory: Symmetrical Chest Expansion and Respiratory Effort, Clear to Auscultation Cardiovascular: NL Sounds; No Murmurs; No JVD Lines/Tubes/Other Access: Clean, Dry and Intact Peripheral IV Result Diagrams: 05/13/17 08:50 05/12/17 06:46 Assess/Plan/Problems-Billing Assessment: 56 yo male with PMH of DM2, COPD, HLD, Depression, ETOH abuse (in the past), TALON who underwent an elective right total knee yesterday. - Patient Problems (1) Type 2 diabetes mellitus Current Visit: Yes Status: Chronic Comment: -glucose in reasonable control -restart home Metformin dose -increased Lantus to match home Levemir dose. -Continue to monitor closely and adjust as needed (last sugar 163) (2) DVT prophylaxis Current Visit: Yes Status: Acute Priority: Medium Code(s): [id number] - SNOMED Code(s): 154894645 Comment: Continue lovenox coumadin bridge per ortho. Status and Disposition: may discharge tomorrow if ready to go from orthopedic standpoint.
[2017-05-13] MEDS: Mirtazapine TAB* 15 MG PO SCH (18:30)
[2017-05-14] MEDS: oxyCODONE TAB* 5 MG TAB PO SCH ×3 (02:18→10:23)
[2017-05-14] MEDS: Ketorolac INJ* 30 MG/ML 1 ML VIAL IV PUSH SCH ×2 (03:48→10:22)
[2017-05-14] MEDS: Levothyroxine TAB* 50 MCG TAB PO SCH (06:09)
[2017-05-14] MEDS: fentaNYL Patch Check Q Shift 1 NOTE SCH (06:46)
[2017-05-14 07:27] VITALS: BP 136/86
[2017-05-14] MEDS: ALPHA LIPOIC ACID PO SCH (07:39)
[2017-05-14] MEDS: Baclofen TAB* 10 MG PO SCH (07:39)
[2017-05-14] MEDS: DULoxetine DR CAP* 60 MG CAP.DR PO SCH (07:39)
[2017-05-14] MEDS: Potassium Chlor TAB* 10 MEQ TAB.ER PO SCH (07:40)
[2017-05-14] MEDS: Docusate CAP* 100 MG PO SCH (07:40)
[2017-05-14] MEDS: Cephalexin CAP* 500 MG PO SCH (07:40)
[2017-05-14] MEDS: QUEtiapine TAB* 25 MG PO SCH (07:40)
[2017-05-14] MEDS: Pregabalin CAP(*) 50 MG PO SCH (07:41)
[2017-05-14] MEDS: busPIRone TAB* 10 MG PO SCH (07:41)
[2017-05-14] MEDS: Enoxaparin(*) 40 MG/0.4 ML SYR SUBCUT SCH (07:42)
[2017-05-14] MEDS ORDERED: metFORMIN* 1,000 MG TAB PO SCH (08:00)
[2017-05-14 08:48] LABS: Hematocrit 34 % (42-52); Hemoglobin 11.7 g/dl (14.0-18.0)
[2017-05-14] MEDS: Insulin LISPRO* 1 UNITS UNIT SUBCUT SCH (08:54)
[2017-05-14] MEDS: OMEGA-3 FATTY ACIDS (NF) 1,000 MG CAP PO SCH (09:33)
--- NOTE | 2017-05-14 09:43 | PN ---
Progress Note - Progress Note Date of Service: 05/14/17 SOAP: Subjective: Pt up walking to restroom. Had a BM this am. No complaint of pain. Objective: Dressing changed. Inc. Clean and dry. Calves soft, nontender. DP pulses 2+. Sensation intact distally. Vital Signs: Temp Pulse Resp BP Pulse Ox 98.2 F 80 16 136/86 91 05/14/17 07:24 05/14/17 07:24 05/14/17 09:33 05/14/17 07:24 05/14/17 07:24 Laboratory Last Values Hgb 11.7 g/dl (14.0-18.0) L 05/14/17 08:12 Hct 34 % (42-52) L 05/14/17 08:12 INR (Anticoag Therapy) 1.90 (0.89-1.11) H 05/14/17 08:12 Sodium 137 mmol/L (133-145) 05/12/17 06:46 Potassium 4.0 mmol/L (3.5-5.0) 05/12/17 06:46 Chloride 104 mmol/L (101-111) 05/12/17 06:46 Carbon Dioxide 29 mmol/L (22-32) 05/12/17 06:46 Anion Gap 4 mmol/L (2-11) 05/12/17 06:46 BUN 15 mg/dL (6-24) 05/12/17 06:46 Creatinine 0.82 mg/dL (0.67-1.17) 05/12/17 06:46 Est GFR ( Amer) 125.9 (>60) 05/12/17 06:46 Est GFR (Non-Af Amer) 97.9 (>60) 05/12/17 06:46 BUN/Creatinine Ratio 18.3 (8-20) 05/12/17 06:46 Glucose 218 mg/dL (70-100) H 05/12/17 06:46 POC Glucose (mg/dL) 235 mg/dL (70-100) H 05/14/17 07:38 Calcium 8.4 mg/dL (8.6-10.3) L 05/12/17 06:46 Assessment: 56 yo male s/p right TKA POD #3 Plan: PT/OT - WBAT Pain Control Coumadin 2mg today for DVT prophylaxis - Redraw Guicho D/C home today
[2017-05-14] MEDS: fentaNYL PATCHs 100 MCG/HR TRANSDERM SCH (11:52)
--- NOTE | 2017-05-14 12:32 | DS ---
Amended report to enter cosigning doctor. DISCHARGE SUMMARY: DATE OF ADMISSION: 05/11/17 DATE OF DISCHARGE: 05/14/17 ATTENDING PHYSICIAN: Dr. Isabelle Smith* (dictated by KAVYA Becker). PRINCIPAL DIAGNOSIS: Right knee osteoarthritis. SECONDARY DIAGNOSES: 1. Diabetes. 2. Chronic obstructive pulmonary disease. 3. Hyperlipidemia. 4. Depression. 5. History of alcohol abuse. 6. Venous insufficiency. 7. Gastroesophageal reflux disease 8. Hypogonadism. 9. Sleep apnea. 10. Hypothyroidism. PRINCIPAL PROCEDURES: Right total knee arthroplasty. REASON FOR HOSPITALIZATION: Mr. Simon is a 56-year-old gentleman with continued complaints of right knee pain due to severe osteoarthritis. He has failed conservative management and has elected to proceed with right total knee arthroplasty, which was done on 05/11/[address] Smith. HOSPITAL COURSE: The patient was admitted to the hospital on 05/11/17 for right total knee arthroplasty. He underwent surgery without any complications and was transferred to the recovery room and subsequently to the surgical stay unit in a stable condition. His vital signs have remained stable throughout the hospital course, including remaining afebrile. His INR was checked for Coumadin dosing and was 1.90 on the day of discharge and was instructed to take 2 mg of Coumadin on the day of discharge. Hemoglobin and hematocrit were checked throughout the hospital course and hemoglobin was 11.7 and hematocrit 34 on the day of discharge. The patient participated in physical therapy and occupational therapy and has done quite well. He will be discharged to home on 05/14/17 in a stable condition. DISCHARGE INSTRUCTIONS: Weightbear as tolerated. Wound Care: Okay to shower. No bathing, swimming, submerging the wound; use gentle soap, pat dry, cover with gauze, Wojciech wrap or tape. Call orthopedic office for increasing drainage, redness, increased pain or fever, go to ER with shortness of breath or chest pain. Diet: Regular diet. Increased fluids and fiber to prevent constipation. Continue to use stool softeners. Call if no bowel movement within 48 hours. Continue physical therapy and occupational therapy exercises as shown. Visiting home nurse to do wound checks. Visiting home nurse to draw blood work for INR on Mondays and . Coumadin dosing, take 2 mg today, 05/14/17. Re-draw INR on Monday. Antibiotic required prior to any dental work. FOLLOWUP: Follow up with Dr. Smith in 10 to 14 days. Call the orthopedic office to schedule an appointment. KAVYA BECKER [id number]/[facility] #: [id number] MTDD
[2017-05-17] MEDS ORDERED: Cyanocobalamin TAB* 500 MCG PO SCH (09:00)
== END 2017-05-14 12:20 | disposition home health service (06) | DRG 470 ==
LOC: AA 09:22 → SSU 14:51
PROVIDERS: ADMIT Orthopaedic Surgery Adult Reconstructive Orthopaedic Surgery; ATTEND Orthopaedic Surgery Adult Reconstructive Orthopaedic Surgery
PROC: 0SRC0J9 Replacement of Right Knee Joint with Synthetic Substitute, Cemented, Open Approach (ICD-10-PCS; principal; 2017-05-11 12:00)
DX: M17.11 Unilateral primary osteoarthritis, right knee (principal); E23.0 Hypopituitarism; E11.9 Type 2 diabetes mellitus without complications; J44.9 Chronic obstructive pulmonary disease, unspecified; E78.5 Hyperlipidemia, unspecified; F32.9 Major depressive disorder, single episode, unspecified; I87.2 Venous insufficiency (chronic) (peripheral); F17.210 Nicotine dependence, cigarettes, uncomplicated; K21.9 Gastro-esophageal reflux disease without esophagitis; G47.33 Obstructive sleep apnea (adult) (pediatric); E03.9 Hypothyroidism, unspecified; Z96.643 Presence of artificial hip joint, bilateral; Z96.612 Presence of left artificial shoulder joint; Z96.611 Presence of right artificial shoulder joint; Z79.84 Long term (current) use of oral hypoglycemic drugs; Z79.891 Long term (current) use of opiate analgesic; Z79.899 Other long term (current) drug therapy; Z88.8 Allergy status to other drugs, medicaments and biological substances; Z91.048 Other nonmedicinal substance allergy status; Z79.4 Long term (current) use of insulin; F10.21 Alcohol dependence, in remission; Z83.3 Family history of diabetes mellitus; Z82.5 Family history of asthma and other chronic lower respiratory diseases; M25.761 Osteophyte, right knee
CPT/HCPCS: 36415; 80048; 85014; 85018; 85610; 88305; 88311; 94760; A9270-GY; J0330; J0360; J0690; J1100; J1170; J1650; J1885; J2250; J2405; J2704; J2795; J3010

== ENCOUNTER 2017-09-14 11:00 | Inpatient (IN) | payer MEDICARE ==
--- NOTE | 2017-09-01 22:34 | HP ---
PREOPERATIVE HISTORY AND PHYSICAL: DATE OF ADMISSION/SURGERY: 09/14/17 DATE OF OFFICE VISIT: 09/01/17 ATTENDING SURGEON: Dr. Isabelle Smith * (DICTATED BY KAVYA TERRAZAS) PROCEDURE: Left total knee replacement. CHIEF COMPLAINT: Left knee pain. HISTORY OF PRESENT ILLNESS: Mr. Simon is a 56-year-old male who presents to the clinic for left knee pain due to severe end-stage osteoarthritis. He has failed conservative measures and therefore agreed to undergo left total knee replacement with Dr. Smith on 09/14/17. PAST MEDICAL HISTORY: Hypothyroidism, diabetes, COPD, hyperlipidemia, depression, history of alcohol abuse, venous insufficiency, GERD, hypogonadism, and obstructive sleep apnea. PAST SURGICAL HISTORY: Lumbar fusion, bilateral total hip replacements, bilateral total shoulder replacements, right knee arthroscopy x3, left knee arthroscopy x2, right total knee arthroplasty. The patient denies prior complications with anesthesia. MEDICATIONS: 1. Oxycodone 30 mg one by mouth every 4 to 6 hours for pain. 2. Fentanyl 100 mg topical, change every 3 days. 3. Potassium chloride SR 10 mEq one by mouth daily. 4. Lyrica 150 mg one by mouth 3 times a day. 5. Fish oil 2 g one by mouth daily. 6. Cymbalta 60 mg one by mouth twice a day. 7. Furosemide 40 mg once daily. 8. Mirtazapine 45 mg once daily. 9. Metformin 500 mg 2 tabs in the morning and one in the evening. 10. Levothyroxine 50 mcg one by mouth every day. 11. Quetiapine fumarate 25 mg 1 to 2 times a day. 12. Buspirone HCl 10 mg one by mouth twice a day. 13. Alpha-lipoic acid 200 mg daily. 14. Vitamin B12 one by mouth daily. 15. Celebrex 200 mg one by mouth daily. 16. Albuterol sulfate as needed. 17. Melatonin uses at night as needed for sleep. 18. Zolpidem tartrate. 19. Baclofen 10 mg twice a day. 20. Levemir 100 units/mL 60 units at bedtime. 21. Seroquel 50 mg to take one tab by mouth 2 times a day. ALLERGIES: NICODERM PATCH. FAMILY HISTORY: Positive for diabetes. SOCIAL HISTORY: He is disabled. He smokes quarter pack per day. He denies alcohol use or illegal drug use. REVIEW OF SYSTEMS: A 14-point review of systems was reviewed with the patient. Positive for current complaint, otherwise negative. Denies fever, chills, chest pain, shortness of breath. Denies history of bleeding disorder. Denies history of DVT or PE. PHYSICAL EXAMINATION GENERAL: Well-developed, well-nourished 56-year-old male in no acute distress. VITAL SIGNS: Height 70, weight 300, pulse 80, blood pressure 142/84, BMI 43.0. HEENT: Normocephalic, atraumatic. PERRLA. Throat clear. NECK: Supple. PULMONARY: Lungs are clear to auscultation bilaterally. No wheezing, rhonchi, or rales. CARDIO: Regular rate and rhythm. S1, S2. No murmurs, gallops, or rubs. No edema. ABDOMEN: Positive bowel sounds, soft, nontender. NEUROLOGIC: Alert and oriented x3. Cranial nerves are grossly intact. MUSCULOSKELETAL: Left lower extremity, skin is intact. No abrasions or open wounds. Moderate effusion tenderness over the medial and lateral joint lines. Range of motion of 5 to 120 with patellofemoral crepitus. Stable varus and valgus stress. +5/5 strength to dorsiflexion and plantar flexion. Calf soft, nontender, +2 PT pulse. Sensation is intact to light touch distally. DIAGNOSTIC STUDIES: Multi-view x-rays of the left knee revealed severe degenerative osteoarthritis with tricompartmental joint space narrowing, osteophyte formation, and subchondral sclerosis. There is also significant chondrocalcinosis medially and laterally. IMPRESSION: Left knee end-stage osteoarthritis. PLAN: The patient is scheduled to undergo left total knee replacement with Dr. Smith on 09/14/17. He will return to the office in 10 to 14 days postop for followup and suture removal. Coumadin was sent to the patient's pharmacy for postop DVT prophylaxis. He was instructed not to take this prior to surgery and Colace was sent for prevention of constipation. Pain medication will be sent at the time of discharge. KAVYA TERRAZAS [id number]/[facility] #: [id number] [facility]
[~2017-09-14 11:00] MED LIST changes: +Buffered Lidocaine 0.9% SYRIN* 5 ML/SYR SYRINGE ONE; -Famotidine IV* 10 MG/ML 2 ML (20 mg) IV ONE; +Midazolam* 1 MG/ML 2 ML VIAL (2 MG) ONE; +ceFAZolin 1 GM in Dextrose (*) 1 GM/50 ML BAG IVPB ONE; +ceFAZolin 2 GM PREMIX (*) 2 GM/50 ML BAG IVPB ONE; +fentaNYL* 50 MCG/ML 2 ML VIAL (100 MCG VIAL) ONE
[2017-09-14] MEDS ORDERED: Bupivacaine 0.5% SDV PF* 10-30ML VIAL ONE ×2 (11:45→12:47)
[2017-09-14] MEDS ORDERED: Succinylcholine* 20 MG/ML 10 ML VIAL ONE (12:47)
[2017-09-14] MEDS ORDERED: Propofol* 10 MG/ML 20 ML BTL IV PUSH ONE (12:47)
[2017-09-14] MEDS ORDERED: EPHEDrine (Pressors)* 50 MG/ML VIAL ONE (12:47)
[2017-09-14] MEDS ORDERED: Ondansetron INJ* 2 MG/ML VIAL ONE (12:47)
[2017-09-14] MEDS ORDERED: Lidocaine 2% PF * 5 ML VIAL ONE (12:47)
[2017-09-14] MEDS ORDERED: Rocuronium* 10 MG/ML VIAL ONE (12:53)
[2017-09-14] MEDS ORDERED: Glycopyrrolate IV* 0.2 MG/ML 1 ML VIAL ONE (13:16)
[2017-09-14] MEDS ORDERED: fentaNYL* 50 MCG/ML 2 ML VIAL (100 MCG VIAL) ONE ×4 (13:22→17:11)
[2017-09-14] MEDS ORDERED: Ibuprofen TAB* 400 MG PO PRN (13:42)
[2017-09-14] MEDS ORDERED: Naloxone* 0.4 MG/ML 1 ML VIAL IV PRN (13:42)
[2017-09-14] MEDS ORDERED: Acetaminophen TAB* 325 MG PO PRN ×2 (13:42→14:12)
[2017-09-14] MEDS ORDERED: Cyclobenzaprine TAB* 10 MG PO PRN (14:12)
[2017-09-14] MEDS ORDERED: oxyCODONE/Acetamin 5/325 MG* TAB PO PRN (14:12)
[2017-09-14] MEDS ORDERED: Ondansetron INJ* 2 MG/ML VIAL IV PRN (14:12)
[2017-09-14] MEDS ORDERED: diPHENhydraMINE LIQ* 12.5 MG/5 ML UDC PO PRN (14:12)
[2017-09-14] MEDS ORDERED: Magnesium Hydroxide LIQ* 30 ML UDC PO PRN (14:12)
[2017-09-14] MEDS ORDERED: Polyethylene Glycol 3350* 17 GM PACKET PO PRN (14:12)
[2017-09-14] MEDS ORDERED: diPHENhydraMINE IV* 50 MG/ML 1 ml VIAL (BENADRYL) IV PRN (14:12)
[2017-09-14] MEDS ORDERED: Bisacodyl SUPP* 10 MG SUPP PR PRN (14:12)
[2017-09-14] MEDS ORDERED: Ondansetron TAB* 4 MG PO PRN (14:12)
[2017-09-14] MEDS ORDERED: Albuterol HFA INHALER* 8 gm MDI INH PRN (14:22)
[2017-09-14] MEDS ORDERED: HYDROmorphone INJ* 2 MG/ML CARPUJECT SYRINGE ONE (15:32)
[2017-09-14] MEDS: fentaNYL* 50 MCG/ML 2 ML VIAL (100 MCG VIAL) IV PRN ×5 (15:34→17:12)
[2017-09-14] MEDS: HYDROmorphone INJ* 1 MG/ML CARPUJECT SYRINGE IV PRN ×2 (15:35→15:44)
[2017-09-14] MEDS: fentaNYL PATCHs 100 MCG/HR TRANSDERM SCH (15:56)
[2017-09-14] MEDS ORDERED: Ibuprofen TAB* 600 MG ONE (16:27)
[2017-09-14] MEDS ORDERED: oxyCODONE/Acetamin 5/325 MG* TAB ONE (16:27)
[2017-09-14] MEDS: oxyCODONE/Acetamin 5/325 MG* TAB PO PRN ×2 (16:28→22:02)
[2017-09-14] MEDS ORDERED: Ibuprofen TAB* 400 MG ONE (16:30)
[2017-09-14] MEDS ORDERED: Warfarin TAB(*) 6 MG PO ONE (17:00)
--- NOTE | 2017-09-14 17:46 | RAD ---
Indication: Left knee pain. 2 views of left knee demonstrates bipolar left knee arthroplasty in satisfactory position. No loosening is noted. IMPRESSION: Left knee replacement in satisfactory position.
[2017-09-14] MEDS: fentaNYL Patch Check Q Shift 1 NOTE SCH ×2 (17:54→19:01)
[2017-09-14] MEDS ORDERED: Dextrose 50% Syringe 50 ML* 25 GM/50 ML SYRINGE IV PUSH PRN (17:59)
[2017-09-14] MEDS ORDERED: MIRTAZAPINE 45 MG PO SCH (18:00)
[2017-09-14] MEDS: Morphine INJ* 2 MG/ML 1 ML SYRINGE (TWO MG - NEW SYRINGE VERSION) IV PRN ×3 (19:03→23:04)
[2017-09-14] MEDS: oxyCODONE TAB* 5 MG TAB PO PRN (19:55)
[2017-09-14] MEDS: Pregabalin CAP(*) 50 MG PO SCH (19:56)
[2017-09-14] MEDS: busPIRone TAB* 10 MG PO SCH (19:58)
[2017-09-14] MEDS: Magnesium Hydroxide LIQ* 30 ML UDC PO SCH (19:58)
[2017-09-14] MEDS: QUEtiapine TAB* 25 MG PO SCH (19:58)
[2017-09-14] MEDS ORDERED: Insulin GLARGINE(*) 1 UNITS UNIT SUBCUT SCH (20:00)
[2017-09-14] MEDS: Baclofen TAB* 10 MG PO SCH (20:38)
[2017-09-14] MEDS: Docusate CAP* 100 MG PO SCH (20:39)
[2017-09-14] MEDS ORDERED: busPIRone TAB* 10 MG PO SCH (21:00)
[2017-09-14] MEDS ORDERED: PREGABALIN 150 MG PO SCH (21:00)
[2017-09-14] MEDS ORDERED: DULoxetine DR CAP* 60 MG CAP.DR PO SCH (21:00)
[2017-09-14] MEDS ORDERED: SEROQUEL 50 MG PO SCH (21:00)
[2017-09-14] MEDS ORDERED: metFORMIN* 500 MG TAB PO SCH (21:00)
[2017-09-14] MEDS ORDERED: Zolpidem TAB* 10 MG PO PRN (21:00)
[2017-09-14] MEDS: ceFAZolin 1 GM VIAL(*) 1 GM in NS 0.9% 50 ML* 50 ML IVPB SCH (22:16)
[2017-09-14] MEDS: Insulin LISPRO* 1 UNITS UNIT SUBCUT SCH (22:33)
--- NOTE | 2017-09-14 22:50 | CONS ---
CC: Dr. Umberto Brown; Macy Hernandez MD; Isabelle Smith MD * CONSULTATION REPORT: DATE OF CONSULT: 09/14/17 PRIMARY CARE PROVIDER: Dr. Umberto Brown. MY ATTENDING WHILE IN THE HOSPITAL: Macy Hernandez MD REQUESTING PROVIDER: Isabelle Smith MD REASON FOR CONSULTATION: Comanagement of medical comorbidities. HISTORY OF PRESENT ILLNESS: The patient is a 56-year-old male with past medical history significant for diabetes mellitus type 2 insulin dependent, COPD , hyperlipidemia, hypothyroidism, obstructive sleep apnea, who presents for a left total knee replacement and is examined while in the post-acute care unit. The patient states his pain is 7/10 even after copious amounts of pain medications which can be found in medical record, but denies any other complaints. The patient states that he checks his blood sugars every other day approximately and they are usually 135 to 150. The patient does not know if he had a recent hemoglobin A1c, the most recent in the computer here is 7.4 from . The patient states that he uses his rescue inhaler about once a day, is on no long-term control inhalers for his COPD. The patient denies any recent swelling in his legs. The patient states that he can walk about half a mile before getting winded and go about 1 mile on his stationary bike before getting winded. The patient states that his plan is to stop smoking after he leaves the hospital after this hospitalization. The patient states that he was previously in the hospital 3 days for his other knee replacement. The patient states "I am pretty healthy except for my joints." The patient denies chest pain, shortness of breath, nausea, vomiting, fevers, chills, recent illness, exposure to sick contacts including those who had the flu, head-ache, dizziness , changes in vision, abdominal pain, pain when he urinated, proclivity to UTI, numbness and tingling in his hands or feet, or other recent pain. The patient had an estimated blood loss of less than 150 during his surgery and had anesthesia with general endotracheal anesthesia and a major nerve block. The patient does not use oxygen at home. PAST MEDICAL HISTORY: Hypothyroidism, diabetes, COPD, hyperlipidemia, depression, history of alcohol abuse, venous insufficiency, GERD, hypogonadism, obstructive sleep apnea, and tobacco abuse. PAST SURGICAL HISTORY: Lumbar fusion, bilateral total hip replacements, bilateral total shoulder replacements, right knee arthroscopy x3, left knee arthroscopy x2, total right knee arthroplasty, and total left knee arthroplasty. MEDICATIONS: 1. Oxycodone 30 mg 1 by mouth every 4 to 6 hours. 2. Fentanyl 100 mcg patch q.72 hours. 3. Potassium chloride sustained release 10 mEq 1 by mouth daily. 4. Lyrica 150 mg 1 by mouth twice daily. 5. Fish oil 2 g 1 by mouth daily. 6. Cymbalta 60 mg 1 by mouth once daily. 7. Furosemide 40 mg once daily. 8. Mirtazapine 45 mg once daily. 9. Metformin 1000 mg p.o. b.i.d. 10. Levothyroxine 50 mcg p.o. daily. 11. Seroquel 25 mg twice daily. 12. Buspirone 10 mg twice daily. 13. Vitamin B12, 1 by mouth daily, unknown strength. 14. Celebrex 200 mg 1 by mouth daily. 15. Albuterol sulfate inhaler 2 puffs q.4 hours as needed. 16. Melatonin as needed. 17. Sonata 10 mg p.o. nightly as needed. 18. Baclofen 10 mg twice daily. 19. Hydroxyzine 50 mg 4 times a day p.o. as needed. 20. Levemir 58 units at bedtime. ALLERGIES: NICODERM PATCH. FAMILY HISTORY: Positive for diabetes. The patient denies any other pertinent family history. SOCIAL HISTORY: The patient is on disability. The patient smokes quarter pack of cigarettes a day, but states that he quit today and would like help with cravings. The patient denies alcohol or illegal drug use. The patient's will be his surrogate decision maker. REVIEW OF SYSTEMS: A 14-point review of systems is reviewed and is negative except for the above. PHYSICAL EXAM: General: The patient is a 56-year-old male, who appears stated age, sitting comfortably in the bed, in no acute distress. The patient has numerous visible tattoos. Vital Signs: Temperature 97.8, pulse rate 74, respiratory rate 14, oxygen saturation 98% on 3 L, blood pressure 155/93. HEENT : Head normocephalic, atraumatic. Sclerae anicteric. No conjunctival injection. Nasal mucosa moist. Oral mucosa moist. No pharyngeal erythema, exudate, or discharge. Neck: Supple, nontender. No lymphadenopathy. No carotid bruits auscultated. Cardiac: Regular rate and rhythm. No clicks, murmurs, gallops, or rubs. Pulses 2+ in bilateral dorsalis pedis, posterior tibialis, and radial areas. No edema noted in the bilateral lower extremities. Respiratory: Clear to auscultation bilaterally. No wheezes, rales, or rhonchi. Good air exchange bilaterally. Abdomen: Soft, nontender, nondistended, obese. Bowel sounds present and normoactive in all 4 quadrants. No hepatosplenomegaly. No abdominal bruits auscultated. Genitourinary: No suprapubic tenderness or CVA tenderness. The patient has a Cifuentes catheter draining clear yellow urine in place. Skin: Clean, dry, intact. The patient has a surgical incision on his left knee with a drain, covered by a clean bulky dressing and a Cryo unit. Neurologic: Alert and oriented x3. Cranial nerves II through XII grossly intact. Reflexes are 1+ in bilateral biceps and Achilles areas. Psychiatric: Pleasant and cooperative. LABORATORY DATA: [id number] glucoses are 202 and 219 since being in the hospital. Preoperative lab testing is unremarkable except for an elevated glucose, MCH, RDW, white blood cell count 8.1, hemoglobin 15.3, platelets 165, 000. INR 0.87, PTT 34.7. Sodium 137, potassium 4.3, chloride 101, carbon dioxide 28, anion gap 8, BUN 23, creatinine 0.87. AST 27, ALT 32, alkaline phosphatase 77. Bilirubin 0.4. Protein 6.7. Albumin 4.2, globulin 2.5. TSH 2.21, free T4 0.73. IMPRESSION: The patient is a 56-year-old male, who is postop day 0 from a left total knee arthroplasty. The patient has pain uncontrolled with significant pain medication, but otherwise has no acute complaints. 1. Postoperative state. The patient is postoperative day 0. I will defer management to the patient's primary team. We will monitor hemoglobin and hematocrit. The patient should have bowel regimen and pain control per primary team. The patient had Cifuentes catheter removed for a void trial sometime next day. 2. Insulin-dependent diabetes mellitus, type 2. The patient has elevated point -of- care glucoses on the morning of his surgery while I rechecked these a.c. and h.s. The patient will have sliding scale insulin coverage with lispro insulin. The patient will also have 45 units of glargine insulin daily, this is a decrease from the patient's home dose due to possible poor oral intake, we will increase as tolerated. We will not recheck a hemoglobin A1c at one time as his most recent was 2 months ago and he has no sign of complication. We will hold metformin while in the hospital due to risk of acute kidney injury in the postoperative state. 3. Chronic obstructive pulmonary disease. The patient will have albuterol inhaler available as needed. There is no sign of acute exacerbation. 4. Hypothyroidism. Continue the patient's levothyroxine at home dose. 5. History of alcohol abuse. The patient denies recent alcohol use. We will monitor for signs of possible withdrawal. We will not institute [facility] protocol at this time. 6. Hypertension. The patient is on furosemide for hypertension. He is also on potassium chloride. We will continue medications and monitor BMP daily. 7. Depression. Continue Cymbalta, mirtazapine, buspirone. 8. DVT prophylaxis. Lovenox bridged to warfarin as per Ortho. 9. FEN. The patient has lactated ringer's running at 100 mL an hour. The patient will have postoperative diet as tolerated. 10. Code status. The patient is a full code. The patient's surrogate decision maker is , Anastasiia Simon. 11. Disposition: Per primary team. TIME SPENT: Approximately 60 minutes was spent on this consultation, 30 of which was spent [id number] with the patient obtaining history and physical and discussing treatment plan. KAVYA LILLY [id number]/SINA #: [id number] AMELIA
[2017-09-15] MEDS: oxyCODONE TAB* 5 MG TAB PO PRN ×6 (00:19→22:23)
[2017-09-15] MEDS: Morphine INJ* 2 MG/ML 1 ML SYRINGE (TWO MG - NEW SYRINGE VERSION) IV PRN ×11 (01:16→22:28)
[2017-09-15] MEDS: oxyCODONE/Acetamin 5/325 MG* TAB PO PRN ×2 (02:09→06:02)
[2017-09-15] MEDS: Mouth Piece, Nicotine* 1 EACH CARTRIDGE INH PRN (04:13)
[2017-09-15] MEDS: Nicotine Inhaler* 10 MG AMP INH PRN (04:14)
[2017-09-15] MEDS: CMCS Melatonin (NF) 3 MG TAB PO SCH ×2 (04:41→20:03)
[2017-09-15] MEDS: Levothyroxine TAB* 50 MCG TAB PO SCH (05:23)
[2017-09-15 05:48] LABS: Hematocrit 38 % (42-52); Hemoglobin 13.1 g/dl (14.0-18.0); Mean Platelet Volume 8 um3 (7.4-10.4); Platelet Count 179 10^3/ul (150-450)
[2017-09-15] MEDS: ceFAZolin 1 GM VIAL(*) 1 GM in NS 0.9% 50 ML* 50 ML IVPB SCH ×2 (05:51→14:20)
[2017-09-15 05:57] LABS: EGFR Non-African American 100.7 (>60)
[2017-09-15 06:05] LABS: INR 0.94 (0.77-1.02)
[2017-09-15] MEDS: fentaNYL Patch Check Q Shift 1 NOTE SCH ×2 (06:56→18:30)
[2017-09-15] MEDS: Pregabalin CAP(*) 50 MG PO SCH ×2 (07:47→20:03)
[2017-09-15] MEDS: DULoxetine DR CAP* 60 MG CAP.DR PO SCH (07:48)
[2017-09-15] MEDS: Potassium Chlor TAB* 10 MEQ TAB.ER PO SCH (07:48)
[2017-09-15] MEDS: Baclofen TAB* 10 MG PO SCH ×2 (07:48→20:04)
[2017-09-15] MEDS: QUEtiapine TAB* 25 MG PO SCH ×2 (07:48→20:04)
[2017-09-15] MEDS: busPIRone TAB* 10 MG PO SCH ×2 (07:48→20:04)
[2017-09-15] MEDS: Furosemide TAB* 40 MG PO SCH (07:48)
[2017-09-15] MEDS: Docusate CAP* 100 MG PO SCH ×2 (07:48→20:04)
[2017-09-15] MEDS: Magnesium Hydroxide LIQ* 30 ML UDC PO SCH ×2 (07:50→20:04)
[2017-09-15] MEDS ORDERED: oxyCODONE TAB* 5 MG TAB PO PRN (08:05)
[2017-09-15] MEDS: Insulin LISPRO* 1 UNITS UNIT SUBCUT SCH ×4 (08:52→20:58)
--- NOTE | 2017-09-15 08:57 | PN ---
Progress Note - Progress Note Date of Service: 09/15/17 SOAP: Subjective: 56 y/o male s/p L TKA by DR. Smith 09/14. VSS overnight, afebrile. C/O increased pain- not on home dose of pain meds. sitting in chair comfortably. Objective: General- Well appearing, sitting comfortably, NAD AO MSK- drain not holding suction, bleeding at drain site, drain removed intact, no complications, area redressed. surgical dressing intact. + DF/PF b/l, neg homans, PT 2+ b/l. no edema b/l LEs Vital Signs Temp 98.0 F 09/15/17 04:30 Pulse 85 09/15/17 07:56 Resp 16 09/15/17 08:54 BP 146/87 09/15/17 07:56 Pulse Ox 90 09/15/17 07:56 Intake & Output 09/14/17 09/15/17 09/15/17 18:59 06:59 18:59 Intake Total 1600 70 Output Total 430 0 Balance 1170 -1979 Weight 134.263 kg Intake: IV Fluids 1600 20 ABX - CEFAZOLIN 20 CEFAZOLIN 3 GM 100 lr 1500 IVPB 50 ABX - CEFAZOLIN 50 Oral 0 Output: Cifuentes 250 0 Residual 30 Cifuentes 16 Fr 30 Estimated Blood Loss 150 Assessment: Stable 56 y/o male s/p L TKA by DR. Smith 09/14 Plan: - Adjusted pain medication to home regimen, will continue to follow for possible increased dose - DVT - lovenox, coumadin- INR 0.94, 8mg tonight - Continue PT/ OT - Acetaminophen (Tylenol Tab*) 650 mg PO Q4H PRN PRN Reason: PAIN OR TEMPERATURE Albuterol (Ventolin Hfa Inhaler*) 2 puff INH Q6H PRN PRN Reason: SOB/WHEEZING Baclofen (Lioresal Tab*) 10 mg PO BID [facility] Last Admin: 09/15/17 07:48 Dose: 10 mg Bisacodyl (Dulcolax Supp*) 10 mg AK DAILY PRN PRN Reason: constipation Buspirone HCl (Buspar Tab*) 10 mg PO BID [facility] Last Admin: 09/15/17 07:48 Dose: 10 mg Cyclobenzaprine HCl (Flexeril Tab*) 10 mg PO TID PRN PRN Reason: SPASMS Device (Nicotine Mouth Piece*) 1 each INH .USE WITH NICOTROL PRN PRN Reason: CRAVING Last Admin: 09/15/17 04:13 Dose: 1 each Dextrose (D50w Syringe 50 Ml*) 12.5 gm IV PUSH .FOR FS < 60 - SS PRN PRN Reason: FS < 60 Diphenhydramine HCl (Benadryl Iv*) 12.5 mg IV Q6H PRN PRN Reason: PRURITIS Diphenhydramine HCl (Benadryl Liq*) 12.5 mg PO Q6H PRN PRN Reason: itching Docusate Sodium (Colace Cap*) 100 mg PO BID [facility] Last Admin: 09/15/17 07:48 Dose: 100 mg Duloxetine HCl (Cymbalta Cap*) 60 mg PO DAILY [facility] Last Admin: 09/15/17 07:48 Dose: 60 mg Enoxaparin Sodium (Lovenox(*)) 40 mg SUBCUT Q24H [facility] Fentanyl (Duragesic Patch 100 Mcg/Hr *) 100 mcg TRANSDERM Q72HR [facility] Last Admin: 09/14/17 15:56 Dose: 100 mcg Furosemide (Lasix Tab*) 40 mg PO QAM [facility] Last Admin: 09/15/17 07:48 Dose: 40 mg Cefazolin Sodium 1 gm/ Sodium (Chloride) 50 mls @ 200 mls/hr IVPB Q8H [facility] Stop: 09/15/17 13:44 Last Admin: 09/15/17 05:51 Dose: 200 mls/hr Lactated Ringer's (Lactated Ringers 1000 Ml Bag*) 1,000 mls @ 100 mls/hr IV PER RATE [facility] Insulin Glargine (Lantus(*)) 45 units SUBCUT Q24H [facility] Last Admin: 09/14/17 20:07 Dose: 45 units Insulin Human Lispro (Humalog*) 0 units SUBCUT ACHS [facility] PRN Reason: Protocol Last Admin: 09/15/17 08:52 Dose: 6 units Lactulose (Lactulose*) 30 ml PO Q6H PRN PRN Reason: constipation Levothyroxine Sodium (Synthroid Tab*) 50 mcg PO QAM@0600 [facility] Last Admin: 09/15/17 05:23 Dose: 50 mcg Magnesium Hydroxide (Milk Of Magnesia Liq*) 30 ml PO BID [facility] Last Admin: 09/15/17 07:50 Dose: 30 ml Magnesium Hydroxide (Milk Of Magnesia Liq*) 30 ml PO Q6H PRN PRN Reason: constipation Melatonin (Melatonin (Nf)) 3 mg PO BEDTIME [facility] Last Admin: 09/15/17 04:41 Dose: Not Given Mirtazapine (Remeron Tab*) 45 mg PO QPM [facility] Morphine Sulfate (Morphine Inj (Syringe)*) 2 mg IV Q2H PRN PRN Reason: PAIN Last Admin: 09/15/17 07:43 Dose: 2 mg Nicotine (Nicotine Inhaler*) 10 mg INH Q2H PRN PRN Reason: CRAVING Last Admin: 09/15/17 04:14 Dose: 10 mg Ondansetron HCl (Zofran Inj*) 4 mg IV Q6H PRN PRN Reason: nausea Ondansetron HCl (Zofran Tab*) 4 mg PO Q6H PRN PRN Reason: NAUSEA Oxycodone HCl (Roxycodone Tab*) 30 mg PO Q4H PRN PRN Reason: PAIN - MILD TO MODERATE Pharmacy Profile Note (Coumadin Daily Reminder*) 1 note FOLLOW UP 1700 [facility] Pharmacy Profile Note (Fentanyl Patch Check Q Shift) 1 note N/A 0700,1900 [facility] Last Admin: 09/15/17 06:56 Dose: 1 note Polyethylene Glycol/Electrolytes (Miralax*) 17 gm PO DAILY PRN PRN Reason: Constipation Potassium Chloride (Klor Con Er Tab*) 10 meq PO QAM [facility] Last Admin: 09/15/17 07:48 Dose: 10 meq Pregabalin (Lyrica Cap(*)) 150 mg PO BID [facility] Last Admin: 09/15/17 07:47 Dose: 150 mg Quetiapine Fumarate (Seroquel Tab*) 25 mg PO BID [facility] Last Admin: 09/15/17 07:48 Dose: 25 mg Zolpidem Tartrate (Ambien Tab*) 10 mg PO BEDTIME PRN PRN Reason: SLEEP
[2017-09-15] MEDS ORDERED: INSULIN DETEMIR 64 UNIT SUBCUT SCH (09:00)
[2017-09-15] MEDS: Enoxaparin(*) 40 MG/0.4 ML SYR SUBCUT SCH (11:26)
--- NOTE | 2017-09-15 14:10 | PN ---
Subjective Date of Service: 09/15/17 Interval History: Patient states pain is 8/10. Patient states this is much improved now that his pain medication has been adjusted. Patient denies F/C, N/V, Dizziness, VILLA, Changes in vision, CP, SOB, Abdominal pain, Patient has not had a BM. Patient is urinating well without the Cifuentes, denies dysuria. Family History: Unchanged from Admission Social History: Unchanged from Admission Past Medical History: Unchanged from Admission Objective Active Medications: Acetaminophen (Tylenol Tab*) 650 mg PO Q4H PRN PRN Reason: PAIN OR TEMPERATURE Albuterol (Ventolin Hfa Inhaler*) 2 puff INH Q6H PRN PRN Reason: SOB/WHEEZING Baclofen (Lioresal Tab*) 10 mg PO BID [facility] Last Admin: 09/15/17 07:48 Dose: 10 mg Bisacodyl (Dulcolax Supp*) 10 mg PA DAILY PRN PRN Reason: constipation Buspirone HCl (Buspar Tab*) 10 mg PO BID [facility] Last Admin: 09/15/17 07:48 Dose: 10 mg Cyclobenzaprine HCl (Flexeril Tab*) 10 mg PO TID PRN PRN Reason: SPASMS Device (Nicotine Mouth Piece*) 1 each INH .USE WITH NICOTROL PRN PRN Reason: CRAVING Last Admin: 09/15/17 04:13 Dose: 1 each Dextrose (D50w Syringe 50 Ml*) 12.5 gm IV PUSH .FOR FS < 60 - SS PRN PRN Reason: FS < 60 Diphenhydramine HCl (Benadryl Iv*) 12.5 mg IV Q6H PRN PRN Reason: PRURITIS Diphenhydramine HCl (Benadryl Liq*) 12.5 mg PO Q6H PRN PRN Reason: itching Docusate Sodium (Colace Cap*) 100 mg PO BID [facility] Last Admin: 09/15/17 07:48 Dose: 100 mg Duloxetine HCl (Cymbalta Cap*) 60 mg PO DAILY [facility] Last Admin: 09/15/17 07:48 Dose: 60 mg Enoxaparin Sodium (Lovenox(*)) 40 mg SUBCUT Q24H [facility] Last Admin: 09/15/17 11:26 Dose: 40 mg Fentanyl (Duragesic Patch 100 Mcg/Hr *) 100 mcg TRANSDERM Q72HR [facility] Last Admin: 09/14/17 15:56 Dose: 100 mcg Furosemide (Lasix Tab*) 40 mg PO QAM [facility] Last Admin: 09/15/17 07:48 Dose: 40 mg Lactated Ringer's (Lactated Ringers 1000 Ml Bag*) 1,000 mls @ 100 mls/hr IV PER RATE [facility] Insulin Glargine (Lantus(*)) 45 units SUBCUT Q24H [facility] Last Admin: 09/14/17 20:07 Dose: 45 units Insulin Human Lispro (Humalog*) 0 units SUBCUT ACHS [facility] PRN Reason: Protocol Last Admin: 09/15/17 12:13 Dose: 9 units Lactulose (Lactulose*) 30 ml PO Q6H PRN PRN Reason: constipation Levothyroxine Sodium (Synthroid Tab*) 50 mcg PO QAM@0600 [facility] Last Admin: 09/15/17 05:23 Dose: 50 mcg Magnesium Hydroxide (Milk Of Magnesia Liq*) 30 ml PO BID [facility] Last Admin: 09/15/17 07:50 Dose: 30 ml Magnesium Hydroxide (Milk Of Magnesia Liq*) 30 ml PO Q6H PRN PRN Reason: constipation Melatonin (Melatonin (Nf)) 3 mg PO BEDTIME [facility] Last Admin: 09/15/17 04:41 Dose: Not Given Mirtazapine (Remeron Tab*) 45 mg PO QPM [facility] Morphine Sulfate (Morphine Inj (Syringe)*) 2 mg IV Q2H PRN PRN Reason: PAIN Last Admin: 09/15/17 13:32 Dose: 2 mg Nicotine (Nicotine Inhaler*) 10 mg INH Q2H PRN PRN Reason: CRAVING Last Admin: 09/15/17 04:14 Dose: 10 mg Ondansetron HCl (Zofran Inj*) 4 mg IV Q6H PRN PRN Reason: nausea Ondansetron HCl (Zofran Tab*) 4 mg PO Q6H PRN PRN Reason: NAUSEA Oxycodone HCl (Roxycodone Tab*) 30 mg PO Q4H PRN PRN Reason: PAIN - MILD TO MODERATE Last Admin: 09/15/17 10:00 Dose: 30 mg Oxycodone HCl (Roxycodone Tab*) 40 mg PO Q4H PRN PRN Reason: PAIN - MODERATE TO SEVERE Pharmacy Profile Note (Coumadin Daily Reminder*) 1 note FOLLOW UP 1700 [facility] Pharmacy Profile Note (Fentanyl Patch Check Q Shift) 1 note N/A 0700,1900 [facility] Last Admin: 09/15/17 06:56 Dose: 1 note Polyethylene Glycol/Electrolytes (Miralax*) 17 gm PO DAILY PRN PRN Reason: Constipation Potassium Chloride (Klor Con Er Tab*) 10 meq PO QAM [facility] Last Admin: 09/15/17 07:48 Dose: 10 meq Pregabalin (Lyrica Cap(*)) 150 mg PO BID [facility] Last Admin: 09/15/17 07:47 Dose: 150 mg Quetiapine Fumarate (Seroquel Tab*) 25 mg PO BID [facility] Last Admin: 09/15/17 07:48 Dose: 25 mg Warfarin Sodium (Coumadin Tab(*)) 8 mg PO ONCE@1700 ONE PRN Reason: Protocol Stop: 09/15/17 17:01 Zolpidem Tartrate (Ambien Tab*) 10 mg PO BEDTIME PRN PRN Reason: SLEEP Vital Signs - 8 hr 09/15/17 09/15/17 09/15/17 06:02 06:07 06:57 Temperature Pulse Rate Respiratory 16 16 16 Rate Blood Pressure (mmHg) O2 Sat by Pulse Oximetry 09/15/17 09/15/17 09/15/17 07:43 07:47 07:53 Temperature Pulse Rate Respiratory 16 16 16 Rate Blood Pressure (mmHg) O2 Sat by Pulse 95 Oximetry 09/15/17 09/15/17 09/15/17 07:56 07:59 08:00 Temperature Pulse Rate 85 Respiratory 17 16 16 Rate Blood Pressure 146/87 (mmHg) O2 Sat by Pulse 90 Oximetry 09/15/17 09/15/17 09/15/17 08:54 09:38 09:57 Temperature Pulse Rate Respiratory 16 18 16 Rate Blood Pressure (mmHg) O2 Sat by Pulse Oximetry 09/15/17 09/15/17 09/15/17 10:00 10:08 10:33 Temperature Pulse Rate Respiratory 16 16 16 Rate Blood Pressure (mmHg) O2 Sat by Pulse Oximetry 09/15/17 09/15/17 09/15/17 11:27 11:35 12:14 Temperature 98.2 F Pulse Rate 86 Respiratory 16 17 16 Rate Blood Pressure 143/99 (mmHg) O2 Sat by Pulse 93 Oximetry 09/15/17 09/15/17 12:19 13:32 Temperature Pulse Rate Respiratory 16 16 Rate Blood Pressure (mmHg) O2 Sat by Pulse Oximetry Oxygen Devices in Use Now: None Appearance: Patient is a 56yo male who appears stated age and is sitting in the bed in NAD. Eyes: No Scleral Icterus, PERRLA Ears/Nose/Mouth/Throat: NL Teeth, Lips, Gums, Clear Oropharnyx, Mucous Membranes Moist Neck: NL Appearance and Movements; NL JVP, Trachea Midline Respiratory: Symmetrical Chest Expansion and Respiratory Effort, Clear to Auscultation Cardiovascular: NL Sounds; No Murmurs; No JVD, RRR, No Edema Abdominal: NL Sounds; No Tenderness; No Distention, No Hepatosplenomegaly Lymphatic: No Cervical Adenopathy Extremities: No Edema, No Clubbing, Cyanosis Skin: No Rash or Ulcers, - - Left knee incision covered by bulky dressing. Neurological: Alert and Oriented x 3, NL Sensation, NL Muscle Strength and Tone Result Diagrams: 09/15/17 05:19 09/15/17 05:19 Assess/Plan/Problems-Billing Assessment: - Patient Problems (1) Status post total left knee replacement Current Visit: Yes Status: Acute Code(s): Z96.652 - PRESENCE OF LEFT ARTIFICIAL KNEE JOINT SNOMED Code(s): 2481316359287 Comment: Patient is POD #1 from LTKA. Pain better controlled on home medications. Patient has no BM. Voiding well. H/H stable. Management per primary team. (2) Type 2 diabetes mellitus Current Visit: No Status: Chronic Comment: Glucose in reasonable control Increased Lantus to match home Levemir dose. Continue SSI and FSBG ACHS. Continue to hold metformin. (3) COPD (chronic obstructive pulmonary disease) Current Visit: Yes Status: Acute Code(s): J44.9 - CHRONIC OBSTRUCTIVE PULMONARY DISEASE, UNSPECIFIED SNOMED Code(s): 71432013 Comment: No wheezing. 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 Uses albuterol daily at home. Albuterol nebulizers PRN. (4) Chronic pain Current Visit: No Status: Chronic Code(s): G89.29 - OTHER CHRONIC PAIN SNOMED Code(s): 23849236 Comment: Continue fentanyl patch, lyrica, and oxycodone, baclofen and morphine. (5) Depression Current Visit: No Status: Chronic Code(s): F32.9 - MAJOR DEPRESSIVE DISORDER , SINGLE EPISODE, UNSPECIFIED SNOMED Code(s): 24116298 Comment: Continue all home meds. (6) Hypothyroidism Current Visit: No Status: Chronic Code(s): E03.9 - HYPOTHYROIDISM, UNSPECIFIED SNOMED Code(s): 11125393 Comment: Continue levothryoxine. (7) DVT prophylaxis Current Visit: No Status: Acute Priority: Medium Code(s): FVP4911 - SNOMED Code(s): 122838879 Comment: Continue lovenox coumadin bridge per ortho. Status and Disposition: Patient is admitted inpatient. Disposition per primary team. Plan for D/C home.
[2017-09-15] MEDS ORDERED: Warfarin TAB(*) 4 MG PO ONE (17:00)
[2017-09-15] MEDS: Mirtazapine TAB* 15 MG PO SCH (17:14)
[2017-09-15] MEDS ORDERED: Insulin GLARGINE(*) 1 UNITS UNIT SUBCUT SCH (20:00)
[2017-09-16] MEDS: Morphine INJ* 2 MG/ML 1 ML SYRINGE (TWO MG - NEW SYRINGE VERSION) IV PRN ×5 (00:36→16:03)
[2017-09-16] MEDS: Nicotine Inhaler* 10 MG AMP INH PRN (01:10)
[2017-09-16] MEDS: Mouth Piece, Nicotine* 1 EACH CARTRIDGE INH PRN (01:11)
--- NOTE | 2017-09-16 02:32 | OP ---
OPERATIVE NOTE: DATE OF OPERATION: 09/14/17 DATE OF : 64 ATTENDING SURGEON: Isabelle Smith MD WELDER/FITTER: KAVYA Fierro Mr. Mcknight did help throughout the procedure with preparation of leg, manipulation of the knee, wound retraction, and wound closure. ANESTHESIOLOGIST: Dr. Gagnon. ANESTHESIA: General with adductor nerve block. PRE-OP DIAGNOSIS: Severe end-stage degenerative osteoarthritis of the left knee joint. POST-OP DIAGNOSIS: Severe end-stage degenerative osteoarthritis of the left knee joint. OPERATIVE PROCEDURE: Left total knee arthroplasty. COMPLICATIONS: None. ESTIMATED BLOOD LOSS: 300 cc. SPECIMEN: Bone and cartilage from the left knee joint sent to pathology. TOURNIQUET TIME: 51 minutes. HARDWARE USED: This is a [employer] cemented total knee arthroplasty hardware. Two packages o f Simplex bone cement. For the femur, a size 7 left posterior stabilized Legion Oxinium femoral comp onent. For the tibia, a size 6 left Lynda II tibial base plate. For the insert, an 11-mm, size 5/ 6 posterior stabilized articular insert. For the patella, a 41-mm 3-peg all poly patella. BRIEF HISTORY/INDICATION: Mr. Simon is a 56-year-old gentleman with years of increasingly severe l eft knee pain. Radiographs showed gumu-fm-hikv arthritis. He failed conservative treatment with ant i-inflammatories, pain medication, physical therapy, and intraarticular injections. He elected to un dergo a left total knee arthroplasty due to continued pain and decreased quality of life. Informed c onsent was obtained from the patient. He understood the risks of surgery included but were not limit ed to bleeding, infection, damage to nearby structures, continued pain, need for further surgery, int raoperative fracture, nerve palsy, hardware failure or loosening, knee stiffness, loss of motion, str argelia, heart attack, blood clot, and . He wished to proceed. INTRAOPERATIVE FINDINGS: Intraoperatively, the patient was noted to have tricompartmental full-thick ness cartilage loss. DESCRIPTION OF PROCEDURE: Mr. Simon was identified in the preanesthesia unit. His left lower extre mity was marked as the correct operative side. Informed consent was signed and placed in the chart. The patient was taken to the operating room and placed under general anesthesia with an adductor ner ve block. Cifuentes catheter was placed. Tourniquet was placed on the left thigh. Left lower extremity was prepped and draped in the usual sterile fashion. Preop time-out was made to correctly identify the patient's side and site. Appropriate perioperative antibiotics were given within 1 hour of incis ion. A 12-cm midline incision was made with a 10 blade and carried down to the extensor mechanism. A new 10-blade was used to make a standard medial parapatellar arthrotomy. The patella was subluxed latera lly. Electrocautery was used to subperiosteally elevate the soft tissue off the superomedial tibia t o the mid sagittal plane. The knee was flexed up. The anterior horn of the lateral meniscus and ACL were sharply released. A drill was used to enter the distal femur. Intramedullary distal femoral cu tting guide was pinned on the distal femur. Oscillating saw was used to make the distal femoral cut. Next, the external rotation guide was pinned on the distal femur. Distal femur was sized to a size 7. Size 7 multi-cutting jig was pinned on the distal femur. Oscillating saw was used to make the luanne ropriate chamfer cuts. The PCL was sharply released. Tibia was subluxed anteriorly. Extramedullary tibial cutting guide wa s pinned on the proximal tibia. Oscillating saw was used to make the proximal tibial cut. The bone was carefully removed. The knee was brought out into full extension. Spacer block had good fit with the knee in full extension. Medial and lateral ligaments were well balanced. Flexion and extension gaps were well balanced. The knee was flexed up. Lamina television repair teacher was placed both medially and late rally. Any remaining meniscus was removed with electrocautery. Curved osteotome was used to remove p osterior osteophytes. Tibial tray and drop candido were placed and once again confirmed the satisfactory tibial cut. A size 7 left femoral component trial was impacted on to the femur. This had excellent fit. The box for the posterior stabilized implant was prepared using a reamer and box cut osteotome. Size 6 tibial tray trial with an 11-mm insert trial was placed and the knee was taken through a ran ge of motion. The knee had full extension to 130 degrees of flexion with satisfactory patellofemoral tracking. The patella was everted. 9 mm of patellar bone and cartilage was carefully removed with an oscillating saw. The patella was sized to a size 41. Three pegs were drilled through the size 41 guide. 41 trial was placed and the knee was taken through a range of motion. There was satisfactor y patellofemoral tracking. All trials were carefully removed. The bony cut surfaces were copiously irrigated with sterile salin e and dried. Final implants were cemented into place after all trials were carefully removed. The t ibia was subluxed anteriorly and sized to a size 6. Proximal tibia was prepared using a size 6 keel punch. All bony cut surfaces were copiously irrigated with sterile saline and dried. The final impl ants were cemented into place starting with the tibia followed by the femur and last the patella. An 11-mm insert trial was placed and the knee was brought out into full extension. Tourniquet was turn ed down at 51 minutes. The knee was copiously irrigated with sterile saline. Electrocautery was use d to obtain meticulous hemostasis. Once the cement had fully cured, the insert trial was removed. Any excess cement was removed from ar ound the implant and capsule. Final insert chosen was an 11-mm posterior stabilized articular insert , 5/6. This was locked into position on the tibial tray without difficulty. Stability of the insert was checked and rechecked and noted to be stable. Extensor mechanism was closed over a medium Hemov ac drain using interrupted #1 Vicryls. The rest of the incision was closed in a layered fashion usin g 0 and 2-0 Vicryls. Skin was closed using running 3-0 nylon suture. Sterile Xeroform, 4x4s, and Web ril was used to cover the incision. Wojciech wrap and cold pack were placed over this. The patient's ane sthesia was reversed without difficulty. He was taken to the PACU in stable condition. Intended vangie ghtbearing will be weightbearing as tolerated. Intended DVT prophylaxis will be Coumadin with a Love nox bridge. [id number]/[facility] #: [id number]
[2017-09-16] MEDS: oxyCODONE TAB* 5 MG TAB PO PRN ×6 (02:47→23:23)
[2017-09-16 05:46] LABS: Hematocrit 35 % (42-52); Mean Platelet Volume 8 um3 (7.4-10.4); Platelet Count 190 10^3/ul (150-450)
[2017-09-16 05:57] LABS: INR 1.24 (0.77-1.02)
[2017-09-16] MEDS: Levothyroxine TAB* 50 MCG TAB PO SCH (06:09)
[2017-09-16] MEDS: fentaNYL Patch Check Q Shift 1 NOTE SCH ×2 (07:09→19:15)
--- NOTE | 2017-09-16 07:52 | PN ---
Progress Note - Progress Note Date of Service: 09/16/17 SOAP: Subjective: resting comfortably, pain improving, no complaints Objective: Vital Signs Temp Pulse Resp BP Pulse Ox 98.1 F 94 16 151/78 93 09/16/17 03:53 09/16/17 03:53 09/16/17 06:42 09/16/17 03:53 09/16/17 03:53 Laboratory Last Values Hgb 12.0 g/dl (14.0-18.0) L 09/16/17 05:17 Hct 35 % (42-52) L 09/16/17 05:17 Plt Count 190 10^3/ul (150-450) 09/16/17 05:17 MPV 8 um3 (7.4-10.4) 09/16/17 05:17 INR (Anticoag Therapy) 1.24 (0.77-1.02) H 09/16/17 05:17 Sodium 133 mmol/L (133-145) 09/15/17 05:19 Potassium 3.7 mmol/L (3.5-5.0) 09/15/17 05:19 Chloride 99 mmol/L (101-111) L 09/15/17 05:19 Carbon Dioxide 26 mmol/L (22-32) 09/15/17 05:19 Anion Gap 8 mmol/L (2-11) 09/15/17 05:19 BUN 15 mg/dL (6-24) 09/15/17 05:19 Creatinine 0.80 mg/dL (0.67-1.17) 09/15/17 05:19 Est GFR ( Amer) 129.6 (>60) 09/15/17 05:19 Est GFR (Non-Af Amer) 100.7 (>60) 09/15/17 05:19 BUN/Creatinine Ratio 18.8 (8-20) 09/15/17 05:19 Glucose 183 mg/dL (70-100) H 09/15/17 05:19 POC Glucose (mg/dL) 280 mg/dL (70-100) H 09/15/17 20:51 Calcium 9.0 mg/dL (8.6-10.3) 09/15/17 05:19 incision: c/d; dressing changed PE: NVI Assessment: s/p left TKA Plan: 1) PT/OT- WBAT 2) continue Lovenox/Coumadin 3) home tomorrow am
[2017-09-16] MEDS: Insulin LISPRO* 1 UNITS UNIT SUBCUT SCH ×4 (08:37→21:33)
[2017-09-16] MEDS: Pregabalin CAP(*) 50 MG PO SCH ×2 (08:38→21:31)
[2017-09-16] MEDS: QUEtiapine TAB* 25 MG PO SCH ×2 (08:38→21:31)
[2017-09-16] MEDS: busPIRone TAB* 10 MG PO SCH ×2 (08:38→21:32)
[2017-09-16] MEDS: Potassium Chlor TAB* 10 MEQ TAB.ER PO SCH (08:38)
[2017-09-16] MEDS: Furosemide TAB* 40 MG PO SCH (08:39)
[2017-09-16] MEDS: DULoxetine DR CAP* 60 MG CAP.DR PO SCH (08:39)
[2017-09-16] MEDS: Docusate CAP* 100 MG PO SCH ×2 (08:39→21:31)
[2017-09-16] MEDS: Baclofen TAB* 10 MG PO SCH ×2 (08:39→21:31)
[2017-09-16] MEDS: Magnesium Hydroxide LIQ* 30 ML UDC PO SCH ×2 (08:40→21:31)
[2017-09-16] MEDS: Enoxaparin(*) 40 MG/0.4 ML SYR SUBCUT SCH (11:39)
--- NOTE | 2017-09-16 14:05 | PN ---
Subjective Date of Service: 09/16/17 Interval History: Patient has improved pain, working well with PT. No BM, urinating ok. No constipation, no dizziness, no SOB, wheezing, has not needed PRN inhaler. No other complaints. Family History: Unchanged from Admission Social History: Unchanged from Admission Past Medical History: Unchanged from Admission Objective Active Medications: Acetaminophen (Tylenol Tab*) 650 mg PO Q4H PRN PRN Reason: PAIN OR TEMPERATURE Albuterol (Ventolin Hfa Inhaler*) 2 puff INH Q6H PRN PRN Reason: SOB/WHEEZING Baclofen (Lioresal Tab*) 10 mg PO BID [facility] Last Admin: 09/16/17 08:39 Dose: 10 mg Bisacodyl (Dulcolax Supp*) 10 mg MI DAILY PRN PRN Reason: constipation Buspirone HCl (Buspar Tab*) 10 mg PO BID [facility] Last Admin: 09/16/17 08:38 Dose: 10 mg Cyclobenzaprine HCl (Flexeril Tab*) 10 mg PO TID PRN PRN Reason: SPASMS Last Admin: 09/15/17 16:48 Dose: 10 mg Device (Nicotine Mouth Piece*) 1 each INH .USE WITH NICOTROL PRN PRN Reason: CRAVING Last Admin: 09/16/17 01:11 Dose: 1 each Dextrose (D50w Syringe 50 Ml*) 12.5 gm IV PUSH .FOR FS < 60 - SS PRN PRN Reason: FS < 60 Diphenhydramine HCl (Benadryl Iv*) 12.5 mg IV Q6H PRN PRN Reason: PRURITIS Diphenhydramine HCl (Benadryl Liq*) 12.5 mg PO Q6H PRN PRN Reason: itching Docusate Sodium (Colace Cap*) 100 mg PO BID [facility] Last Admin: 09/16/17 08:39 Dose: 100 mg Duloxetine HCl (Cymbalta Cap*) 60 mg PO DAILY [facility] Last Admin: 09/16/17 08:39 Dose: 60 mg Enoxaparin Sodium (Lovenox(*)) 40 mg SUBCUT Q24H [facility] Last Admin: 09/16/17 11:39 Dose: 40 mg Fentanyl (Duragesic Patch 100 Mcg/Hr *) 100 mcg TRANSDERM Q72HR [facility] Last Admin: 09/14/17 15:56 Dose: 100 mcg Furosemide (Lasix Tab*) 40 mg PO QAM [facility] Last Admin: 09/16/17 08:39 Dose: 40 mg Lactated Ringer's (Lactated Ringers 1000 Ml Bag*) 1,000 mls @ 100 mls/hr IV PER RATE [facility] Insulin Glargine (Lantus(*)) 60 units SUBCUT Q24H [facility] Last Admin: 09/15/17 20:07 Dose: 60 units Insulin Human Lispro (Humalog*) 0 units SUBCUT ACHS [facility] PRN Reason: Protocol Last Admin: 09/16/17 13:12 Dose: 9 units Lactulose (Lactulose*) 30 ml PO Q6H PRN PRN Reason: constipation Levothyroxine Sodium (Synthroid Tab*) 50 mcg PO QAM@0600 [facility] Last Admin: 09/16/17 06:09 Dose: 50 mcg Magnesium Hydroxide (Milk Of Magnesia Liq*) 30 ml PO BID [facility] Last Admin: 09/16/17 08:40 Dose: 30 ml Magnesium Hydroxide (Milk Of Magnesia Liq*) 30 ml PO Q6H PRN PRN Reason: constipation Melatonin (Melatonin (Nf)) 3 mg PO BEDTIME [facility] Last Admin: 09/15/17 20:03 Dose: 3 mg Mirtazapine (Remeron Tab*) 45 mg PO QPM [facility] Last Admin: 09/15/17 17:14 Dose: 45 mg Morphine Sulfate (Morphine Inj (Syringe)*) 2 mg IV Q2H PRN PRN Reason: PAIN Last Admin: 09/16/17 12:49 Dose: 2 mg Nicotine (Nicotine Inhaler*) 10 mg INH Q2H PRN PRN Reason: CRAVING Last Admin: 09/16/17 01:10 Dose: 10 mg Ondansetron HCl (Zofran Inj*) 4 mg IV Q6H PRN PRN Reason: nausea Ondansetron HCl (Zofran Tab*) 4 mg PO Q6H PRN PRN Reason: NAUSEA Oxycodone HCl (Roxycodone Tab*) 30 mg PO Q4H PRN PRN Reason: PAIN - MILD TO MODERATE Last Admin: 09/15/17 10:00 Dose: 30 mg Oxycodone HCl (Roxycodone Tab*) 40 mg PO Q4H PRN PRN Reason: PAIN - MODERATE TO SEVERE Last Admin: 09/16/17 10:46 Dose: 40 mg Pharmacy Profile Note (Coumadin Daily Reminder*) 1 note FOLLOW UP 1700 [facility] Last Admin: 09/15/17 17:16 Dose: 1 note Pharmacy Profile Note (Fentanyl Patch Check Q Shift) 1 note N/A 0700,1900 [facility] Last Admin: 09/16/17 07:09 Dose: 1 note Polyethylene Glycol/Electrolytes (Miralax*) 17 gm PO DAILY PRN PRN Reason: Constipation Potassium Chloride (Klor Con Er Tab*) 10 meq PO QAM [facility] Last Admin: 09/16/17 08:38 Dose: 10 meq Pregabalin (Lyrica Cap(*)) 150 mg PO BID [facility] Last Admin: 09/16/17 08:38 Dose: 150 mg Quetiapine Fumarate (Seroquel Tab*) 25 mg PO BID [facility] Last Admin: 09/16/17 08:38 Dose: 25 mg Warfarin Sodium (Coumadin Tab(*)) 8 mg PO ONCE@1700 ONE PRN Reason: Protocol Stop: 09/16/17 17:01 Zolpidem Tartrate (Ambien Tab*) 10 mg PO BEDTIME PRN PRN Reason: SLEEP Vital Signs - 8 hr 09/16/17 09/16/17 09/16/17 06:42 08:00 08:10 Temperature 97.9 F Pulse Rate 91 Respiratory 16 18 16 Rate Blood Pressure 146/83 (mmHg) O2 Sat by Pulse 91 91 Oximetry 09/16/17 09/16/17 09/16/17 08:33 08:38 08:46 Temperature Pulse Rate Respiratory 18 16 18 Rate Blood Pressure (mmHg) O2 Sat by Pulse Oximetry 09/16/17 09/16/17 09/16/17 09:54 10:46 10:51 Temperature Pulse Rate Respiratory 18 18 18 Rate Blood Pressure (mmHg) O2 Sat by Pulse Oximetry 09/16/17 09/16/17 09/16/17 11:31 12:49 13:11 Temperature 98.3 F Pulse Rate 89 Respiratory 14 16 18 Rate Blood Pressure 128/64 (mmHg) O2 Sat by Pulse 92 Oximetry Oxygen Devices in Use Now: None Appearance: Patient is a 56yo male who appears stated age and is sitting in the bed in [facility]. Eyes: No Scleral Icterus, PERRLA Ears/Nose/Mouth/Throat: NL Teeth, Lips, Gums, Clear Oropharnyx, Mucous Membranes Moist Neck: NL Appearance and Movements; NL JVP, Trachea Midline Respiratory: Symmetrical Chest Expansion and Respiratory Effort, Clear to Auscultation, - - Diminished Cardiovascular: NL Sounds; No Murmurs; No JVD, RRR, No Edema Abdominal: NL Sounds; No Tenderness; No Distention, No Hepatosplenomegaly Lymphatic: No Cervical Adenopathy Extremities: No Edema, No Clubbing, Cyanosis Skin: No Nodules or Sclerosis, - - LEft knee incision covered with bulky dressing. Neurological: Alert and Oriented x 3, NL Sensation, NL Muscle Strength and Tone Result Diagrams: 09/16/17 05:17 09/15/17 05:19 Assess/Plan/Problems-Billing Assessment: Patient is a 56yo male with a PMH significant for DM II, COPD, TALON who is POD # 2 from a LTKA and has no issues. - Patient Problems (1) Status post total left knee replacement Current Visit: Yes Status: Acute Code(s): Z96.652 - PRESENCE OF LEFT ARTIFICIAL KNEE JOINT SNOMED Code(s): 0580633292212 Comment: Patient is POD #2 from LTKA. Pain better controlled on home medications. Patient has no BM, no feeling of constipation. Voiding well. H/H stable. Management per primary team. (2) Type 2 diabetes mellitus Current Visit: No Status: Chronic Comment: Glucose in reasonable control Increased Lantus to 70u daily Continue SSI and FSBG ACHS. Resume metformin. (3) COPD (chronic obstructive pulmonary disease) Current Visit: Yes Status: Acute Code(s): J44.9 - CHRONIC OBSTRUCTIVE PULMONARY DISEASE, UNSPECIFIED SNOMED Code(s): 91574663 Comment: No wheezing. No building coordinator control inhalers. Uses albuterol daily at home. Albuterol nebulizers PRN. (4) Chronic pain Current Visit: No Status: Chronic Code(s): G89.29 - OTHER CHRONIC PAIN SNOMED Code(s): 98374623 Comment: Continue fentanyl patch, lyrica, and oxycodone, baclofen and morphine. (5) Depression Current Visit: No Status: Chronic Code(s): F32.9 - MAJOR DEPRESSIVE DISORDER , SINGLE EPISODE, UNSPECIFIED SNOMED Code(s): 77516883 Comment: Continue all home meds. (6) Hypothyroidism Current Visit: No Status: Chronic Code(s): E03.9 - HYPOTHYROIDISM, UNSPECIFIED SNOMED Code(s): 95423370 Comment: Continue levothryoxine. (7) DVT prophylaxis Current Visit: No Status: Acute Priority: Medium Code(s): ISL2819 - SNOMED Code(s): 227165139 Comment: Continue lovenox coumadin bridge per ortho. Status and Disposition: Patient is admitted inpatient. Disposition per primary team. Plan for D/C home tomorrow.
[2017-09-16] MEDS: Insulin GLARGINE(*) 1 UNITS UNIT SUBCUT SCH (15:14)
[2017-09-16] MEDS: metFORMIN* 1,000 MG TAB PO SCH (16:34)
[2017-09-16] MEDS: Mirtazapine TAB* 15 MG PO SCH (16:34)
[2017-09-16] MEDS ORDERED: Warfarin TAB(*) 4 MG PO ONE (17:00)
[2017-09-16] MEDS: CMCS Melatonin (NF) 3 MG TAB PO SCH (21:31)
[2017-09-17] MEDS: oxyCODONE TAB* 5 MG TAB PO PRN ×3 (03:20→12:03)
[2017-09-17] MEDS: Levothyroxine TAB* 50 MCG TAB PO SCH (06:17)
[2017-09-17 06:38] LABS: Hematocrit 29 % (42-52); Hemoglobin 10.3 g/dl (14.0-18.0); Mean Platelet Volume 8 um3 (7.4-10.4); Platelet Count 129 10^3/ul (150-450)
[2017-09-17] MEDS: fentaNYL Patch Check Q Shift 1 NOTE SCH (06:43)
[2017-09-17 06:48] LABS: INR 1.87 (0.77-1.02)
[2017-09-17] MEDS: QUEtiapine TAB* 25 MG PO SCH (07:40)
[2017-09-17] MEDS: busPIRone TAB* 10 MG PO SCH (07:40)
[2017-09-17] MEDS: Pregabalin CAP(*) 50 MG PO SCH (07:40)
[2017-09-17] MEDS: DULoxetine DR CAP* 60 MG CAP.DR PO SCH (07:41)
[2017-09-17] MEDS: Potassium Chlor TAB* 10 MEQ TAB.ER PO SCH (07:41)
[2017-09-17] MEDS: metFORMIN* 1,000 MG TAB PO SCH (07:41)
[2017-09-17] MEDS: Docusate CAP* 100 MG PO SCH (07:41)
[2017-09-17] MEDS: Furosemide TAB* 40 MG PO SCH (07:41)
[2017-09-17] MEDS: Magnesium Hydroxide LIQ* 30 ML UDC PO SCH (07:41)
[2017-09-17] MEDS: Baclofen TAB* 10 MG PO SCH (07:41)
[2017-09-17] MEDS ORDERED: fentaNYL PATCHs 100 MCG/HR TRANSDERM SCH (09:00)
[2017-09-17] MEDS: fentaNYL PATCHs 100 MCG/HR TRANSDERM SCH (09:28)
[2017-09-17] MEDS: Insulin LISPRO* 1 UNITS UNIT SUBCUT SCH ×2 (09:29→14:26)
--- NOTE | 2017-09-17 09:34 | PN ---
Progress Note - Progress Note Date of Service: 09/17/17 SOAP: Subjective: Pt sitting comfortably in chair. No c/o pain. Vital Signs: Temp Pulse Resp BP Pulse Ox 97.8 F 94 18 157/81 95 09/17/17 03:33 09/17/17 03:33 09/17/17 09:28 09/17/17 03:33 09/17/17 03:33 Laboratory Last Values Hgb 10.3 g/dl (14.0-18.0) L 09/17/17 06:06 Hct 29 % (42-52) L 09/17/17 06:06 Plt Count 129 10^3/ul (150-450) L 09/17/17 06:06 MPV 8 um3 (7.4-10.4) 09/17/17 06:06 INR (Anticoag Therapy) 1.87 (0.77-1.02) H 09/17/17 06:06 Sodium 133 mmol/L (133-145) 09/15/17 05:19 Potassium 3.7 mmol/L (3.5-5.0) 09/15/17 05:19 Chloride 99 mmol/L (101-111) L 09/15/17 05:19 Carbon Dioxide 26 mmol/L (22-32) 09/15/17 05:19 Anion Gap 8 mmol/L (2-11) 09/15/17 05:19 BUN 15 mg/dL (6-24) 09/15/17 05:19 Creatinine 0.80 mg/dL (0.67-1.17) 09/15/17 05:19 Est GFR ( Amer) 129.6 (>60) 09/15/17 05:19 Est GFR (Non-Af Amer) 100.7 (>60) 09/15/17 05:19 BUN/Creatinine Ratio 18.8 (8-20) 09/15/17 05:19 Glucose 183 mg/dL (70-100) H 09/15/17 05:19 POC Glucose (mg/dL) 245 mg/dL (70-100) H 09/17/17 07:46 Calcium 9.0 mg/dL (8.6-10.3) 09/15/17 05:19 Objective: calves soft, nontender. Inc. C/D/I. DP pulses 2+. Sensation intact to light touch. Assessment: s/p left TKA POD#3 Plan: OOB PT/OT Pain Control DVT prophylaxis - Coumadin 4mg tonight DC home today
[2017-09-17 10:39] VITALS: BP 136/91
[2017-09-17] MEDS: Enoxaparin(*) 40 MG/0.4 ML SYR SUBCUT SCH (12:03)
[2017-09-17] MEDS: Insulin GLARGINE(*) 1 UNITS UNIT SUBCUT SCH (14:26)
--- NOTE | 2017-09-18 05:02 | DS ---
DISCHARGE SUMMARY: DATE OF ADMISSION: 09/14/17 DATE OF DISCHARGE: 09/17/17 ATTENDING PHYSICIAN: Dr. Isabelle Smith.* (DICTATED BY KAVYA BECKER) PRINCIPAL DIAGNOSIS: Left knee osteoarthritis. SECONDARY DIAGNOSES: 1. Hypothyroidism. 2. Diabetes. 3. Chronic obstructive pulmonary disease. 4. Hyperlipidemia. 5. Depression. 6. History of alcohol abuse. 7. Venous insufficiency. 8. Gastroesophageal reflux disease. 9. Hypogonadism. 10. Obstructive sleep apnea. PRINCIPAL PROCEDURE: Left total knee arthroplasty. REASON FOR HOSPITALIZATION: Mr. Simon is a 56-year-old male who has a longstanding history of left knee pain due to severe end-stage osteoarthritis. He had some conservative measures and had elected to undergo left total knee replacement with Dr. Smith on 09/14/17. HOSPITAL COURSE: The patient was admitted to the hospital on 09/14/17 in anticipation for left total knee arthroplasty. He underwent surgery without any complications, was transferred to the recovery room and subsequently the surgical stay unit in a stable condition. He participated in physical therapy and occupational therapy throughout the hospital course. His vital signs remained stable throughout the hospital course including remaining afebrile. Hemoglobin and hematocrit were drawn throughout the hospital course daily and his hemoglobin was 10.3 and hematocrit was 29 on the day of discharge. INR draws were carried out daily for Coumadin dosing. His INR was 1.87 on the day of discharge and dosed with 4 mg of Coumadin on the day of discharge and was discharged to home in a stable condition. DISCHARGE INSTRUCTIONS: Weightbearing as tolerated. Wound care, okay to shower. No bathing, swimming, submerging wounds. Use gentle soap, pat dry, cover with gauze, Wojciech wrap or tape. Call orthopedic office for increased drainage, redness, increased pain or fever. Go to ER with shortness of breath or chest pain. Regular diet. Increase fluids and fiber to prevent constipation. Continue to use stool softeners. Call office if no bowel movement within 48 hours. Continue physical therapy and occupational therapy exercises as shown. Visiting home nurse to do wound checks. Visiting home nurse to draw blood work for INR on Mondays and . Coumadin dosing, Coumadin 4 mg on 09/17/17, redraw on 09/18/17. Antibiotics required prior to any dental workup. Follow up with Dr. Luis within 10 to 14 days. Call for an appointment. KAVYA BECKER [id number]/[facility] #: [id number] [facility]PITALLeeanna
== END 2017-09-17 12:25 | disposition home health service (06) | DRG 470 ==
LOC: AA 14:09 → SSU 17:53
PROVIDERS: ADMIT Orthopaedic Surgery Adult Reconstructive Orthopaedic Surgery; ATTEND Orthopaedic Surgery Adult Reconstructive Orthopaedic Surgery
PROC: 0SRD069 Replacement of Left Knee Joint with Oxidized Zirconium on Polyethylene Synthetic Substitute, Cemented, Open Approach (ICD-10-PCS; principal; 2017-09-14 12:00)
DX: M17.12 Unilateral primary osteoarthritis, left knee (principal); E03.9 Hypothyroidism, unspecified; E11.9 Type 2 diabetes mellitus without complications; J44.9 Chronic obstructive pulmonary disease, unspecified; M25.762 Osteophyte, left knee; E78.5 Hyperlipidemia, unspecified; F32.9 Major depressive disorder, single episode, unspecified; F17.210 Nicotine dependence, cigarettes, uncomplicated; I87.2 Venous insufficiency (chronic) (peripheral); M11.262 Other chondrocalcinosis, left knee; K21.9 Gastro-esophageal reflux disease without esophagitis; G89.29 Other chronic pain; G47.33 Obstructive sleep apnea (adult) (pediatric); Z96.643 Presence of artificial hip joint, bilateral; Z96.612 Presence of left artificial shoulder joint; Z96.611 Presence of right artificial shoulder joint; Z96.651 Presence of right artificial knee joint; Z79.84 Long term (current) use of oral hypoglycemic drugs; Z79.891 Long term (current) use of opiate analgesic; Z79.899 Other long term (current) drug therapy; Z88.8 Allergy status to other drugs, medicaments and biological substances; Z83.3 Family history of diabetes mellitus; Z79.4 Long term (current) use of insulin
CPT/HCPCS: 36415; 80048; 85014; 85018; 85049; 85610; 88305; 88311; 94760; A9270-GY; C1776; J0330; J0690; J1170; J1650; J2250; J2270; J2405; J2704; J3010